=== PATIENT | male | born 1950 | race Caucasian/White ===

== ENCOUNTER 2018-08-17 13:53 | Inpatient (IN) | payer MEDICARE ==
[~2018-08-17] VITALS: Ht 175.3 cm; Wt 91.8 kg
--- NOTE | ~2018-08-17 | MORECARE ---
CASE MANAGEMENT DISCHARGE SUMMARY PATIENT: SANTIAGO GARCIA UNIT: [id number] ADM DATE: 08/17/18 AGE: 68 : 50 SEX: M ROOM/BED: D.2208 AUTHOR: CUONG CASH PHYSICIAN: REFERRING PHYSICIAN: SEFERINO DE SANTIAGO MD DATE OF SERVICE: 08/18/18 Discharge Plan Patient Name: SANTIAGO GARCIA Facility: [facility]:[place] : 1950 Planned Disposition: Home Anticipated Discharge Date: Discharge Date: Expected LOS: Initial Reviewer: [email or web address] Initial Review Date: 08/17/2018 Generated: 08/18/18 5:17 pm Comments DCP- Discharge Planning Updated by [email or web address]: Shari Sahu on 08/18/18 3:[address] Patient Name: SANTIAGO GARCIA Admission Status: ER Accout number: [id number] Admission Date: 08-17-2018 : 1950 Admission Diagnosis: Attending: SEFERINO DE SANTIAGO Current LOS: 1 Anticipated DC Date: Planned Disposition: Home Primary Insurance: [facility] ADMINISTRATION Discharge Planning Comments: CM met with patient to assess discharge planning needs. Currently he lives independently in [facility]. He stated that his PCP moved out of state. He stated that he was having surgery next week and an IVC filter placed tomorrow. He is open to Inpatient rehab, but unsure what he will need when he is discharged. He talked about going to [place] to where his sister lives. Patient has crutches and a knee brace at home. CM will continue to follow and assist with DC planning. Machinist Set Up: Shari Sahu DCP- Discharge Planning Updated by [id number]: Cecy Boateng on 08/17/18 5:[address] Patient requested to transfer to [facility] for his care. CM contacted Edrith, with [place], provided required information and Edrith states the patient is not registered with the [facility]. CM spoke with patient and he verbalizes the same. Information relayed to Dr. Pickett. Cecy Boateng RN, CM DCPIA - Discharge Planning Initial Assessment Updated by [email or web address]: Shari Sahu on 08/18/18 4:11 pm * Is the patient Alert and Oriented? Yes * How many steps to enter\exit or inside your home? * PCP none * Pharmacy none * Preadmission Environment Home Alone * ADLs Independent * Equipment Crutch * Other Equipment knee brace * List name and contact numbers for known caregivers / representatives who currently or will assist patient after discharge: Uyen () [phone] * Verbal permission to speak to the caregivers and representatives has been obtained from the patient. Yes * Community resources currently utilized None * Additional services required to return to the preadmission environment? Yes * Can the patient safely return to the preadmission environment? No * Has this patient been hospitalized within the prior 30 days at any hospital? No Patient Name: SANTIAGO GARCIA Page 50981 at 1617 All edits/amendments must be made on the electronic document DICTATION DATE: 08/18/181616 CASKET UPHOLSTERER: JULIO CESAR 08/18/181616 RPT#: [id number] [place] DATE: STATUS: ADM IN [facility] [address] [place] [address] END OF REPORT
--- NOTE | ~2018-08-17 | MORECARE ---
CASE MANAGEMENT DISCHARGE SUMMARY PATIENT: SANTIAGO GARCIA UNIT: [id number] ADM DATE: 08/18/18 AGE: 68 : 50 SEX: M ROOM/BED: D.2235 AUTHOR: CUONG CASH PHYSICIAN: REFERRING PHYSICIAN: SEFERINO DE SANTIAGO MD DATE OF SERVICE: 08/28/18 Discharge Plan Patient Name: SANTIAGO GARCIA Facility: [facility]:[place] : 1950 Planned Disposition: Home Anticipated Discharge Date: Discharge Date: 08/27/2018 Expected LOS: Initial Reviewer: [email or web address] Initial Review Date: 08/17/2018 Generated: 08/28/18 4:00 pm Comments DCP- Discharge Planning Updated by [email or web address]: Marilyn Davis on 08/27/18 2:[address] Received orders for discharge to inpatient rehab. Patient is in agreement. I explained IMM, copy given. He states he cannot sign. He said I could call his sister, Uyen, to inform of discharge to inpatient rehab today. I called Uyen and informed. Makayla in inpatient rehab informed. CM will continue to follow and assist with discharge planning/needs. DCP- Discharge Planning Updated by [email or web address]: Caroline Peter on 08/25/18 6:[address] CM received notification from Ashley with Rehab that patient needs to be able to take a few steps and be able to sit up for therapy for 3 hrs prior to admission to rehab. Physical Therapy to continue to work with patient . CM will continue to follow and assist as needed with discharge planning / needs. DCP- Discharge Planning Updated by [email or web address]: Shari Sahu on 08/18/18 3:[address] Patient Name: SANTIAGO GARCIA Admission Status: ER Accout number: [id number] Admission Date: 08-17-2018 : 1950 Admission Diagnosis: Attending: SEFERINO DE SANTIAGO Current LOS: 1 Anticipated DC Date: Planned Disposition: Home Primary Insurance: [employer] ADMINISTRATION Discharge Planning Comments: CM met with patient to assess discharge planning needs. Currently he lives independently in [facility]. He stated that his PCP moved out of state. He stated that he was having surgery next week and an IVC filter placed tomorrow. He is open to Inpatient rehab, but unsure what he will need when he is discharged. He talked about going to [place] to where his sister lives. Patient has crutches and a knee brace at home. CM will continue to follow and assist with DC planning. Electric Tripper Machine Operator: Sharijose alejandro Sahu DCP- Discharge Planning Updated by [id number]: Cecy Boateng on 08/17/18 5:[address] Patient requested to transfer to [facility] for his care. CM contacted Edrith, with [place], provided required information and Edri states the patient is not registered with the [facility]. CM spoke with patient and he verbalizes the same. Information relayed to Dr. Pickett. Cecy Boateng RN, CM DCPIA - Discharge Planning Initial Assessment Updated by [id number]: Shari Sahu on 08/18/18 4:11 pm * Is the patient Alert and Oriented? Yes * How many steps to enter\exit or inside your home? * PCP none * Pharmacy none * Preadmission Environment Home Alone * ADLs Independent * Equipment Crutch * Other Equipment knee brace * List name and contact numbers for known caregivers / representatives who currently or will assist patient after discharge: Uyen (sister) [phone] * Verbal permission to speak to the caregivers and representatives has been obtained from the patient. Yes * Community resources currently utilized None * Additional services required to return to the preadmission environment? Yes * Can the patient safely return to the preadmission environment? No * Has this patient been hospitalized within the prior 30 days at any hospital? No Coverage Notice Reviewer: [id number] Padmini Davis Notice Issued Date-Time: 08/27/2018 15:16 Notice Type: IM Discharge Notice Notice Delivered To: Family Member Relationship to Patient: Sister Chain Sales Representative Name: Uyen Rodas Delivery Method: HAND - Hand Delivered Estella Days: Prior Verbal Notification: Recipient Understood Notice: Yes Recipient Signature: Yes Med Rec Note Co-signed by Attending: Coverage Notice Comment: IMM explained, signed, copy given, original placed in MR Last DP export: 08/27/18 2:31 Patient Name: SANTIAGO GARCIA Page 27854 at 1500 All edits/amendments must be made on the electronic document DICTATION DATE: 08/28/181499 WELL SHOOTER: JULIO CESAR 08/28/181499 RPT#: [id number] DC DATE:08/27/18 STATUS: DIS IN [facility] [address] [place] [address] END OF REPORT
--- NOTE | ~2018-08-17 | MORECARE ---
CASE MANAGEMENT DISCHARGE SUMMARY PATIENT: SANTIAGO GARCIA UNIT: [id number] ADM DATE: 08/18/18 AGE: 68 : 50 SEX: M ROOM/BED: D[facility] AUTHOR: SHAILESH,DOC PHYSICIAN: REFERRING PHYSICIAN: SEFERINO DE SANTIAGO MD DATE OF SERVICE: 08/25/18 Discharge Plan Patient Name: SANTIAGO GARCIA Facility: [facility]:[place] : 1950 Planned Disposition: Home Anticipated Discharge Date: Discharge Date: Expected LOS: Initial Reviewer: [email or web address] Initial Review Date: 08/17/2018 Generated: 08/25/18 8:22 pm Comments DCP- Discharge Planning Updated by [email or web address]: Caroline Peter on 08/25/18 6:[address] CM received notification from Ashley with Rehab that patient needs to be able to take a few steps and be able to sit up for therapy for 3 hrs prior to admission to rehab. Physical Therapy to continue to work with patient . CM will continue to follow and assist as needed with discharge planning / needs. DCP- Discharge Planning Updated by [email or web address]: Shari Sahu on 08/18/18 3:[address] Patient Name: SANTIAGO GARCIA Admission Status: ER Accout number: [id number] Admission Date: 08-17-2018 : 1950 Admission Diagnosis: Attending: SEFERINO DE SANTIAGO Current LOS: 1 Anticipated DC Date: Planned Disposition: Home Primary Insurance: [facility] ADMINISTRATION Discharge Planning Comments: CM met with patient to assess discharge planning needs. Currently he lives independently in [facility]. He stated that his PCP moved out of state. He stated that he was having surgery next week and an IVC filter placed tomorrow. He is open to Inpatient rehab, but unsure what he will need when he is discharged. He talked about going to [place] to where his sister lives. Patient has crutches and a knee brace at home. CM will continue to follow and assist with DC planning. Brainer: Shari Sahu DCP- Discharge Planning Updated by [email or web address]: Cecy Boateng on 08/17/18 5:[address] Patient requested to transfer to [facility] for his care. CM contacted [place], with [place], provided required information and Edrith states the patient is not registered with the [facility]. CM spoke with patient and he verbalizes the same. Information relayed to Dr. Pickett. Cecy Boateng RN, CM DCPIA - Discharge Planning Initial Assessment Updated by [email or web address]: Shari Sahu on 08/18/18 4:11 pm * Is the patient Alert and Oriented? Yes * How many steps to enter\exit or inside your home? * PCP none * Pharmacy none * Preadmission Environment Home Alone * ADLs Independent * Equipment Crutch * Other Equipment knee brace * List name and contact numbers for known caregivers / representatives who currently or will assist patient after discharge: Uyen (sister) [phone] * Verbal permission to speak to the caregivers and representatives has been obtained from the patient. Yes * Community resources currently utilized None * Additional services required to return to the preadmission environment? Yes * Can the patient safely return to the preadmission environment? No * Has this patient been hospitalized within the prior 30 days at any hospital? No Last DP export: 08/18/18 3:17 Patient Name: SANTIAGO GARCIA Page 07713 at 1922 All edits/amendments must be made on the electronic document DICTATION DATE: 08/25/181921 MARKETING SALES REPRESENTATIVE: JULIO CESAR 08/25/181921 RPT#: [id number] DC DATE: STATUS: ADM IN [facility] [address] [place] [address] END OF REPORT
--- NOTE | ~2018-08-17 | MORECARE ---
CASE MANAGEMENT DISCHARGE SUMMARY PATIENT: SANTIAGO GARCIA UNIT: [id number] ADM DATE: 08/18/18 AGE: 68 : 50 SEX: M ROOM/BED: D.2235 AUTHOR: SHAILESH,DOC PHYSICIAN: REFERRING PHYSICIAN: SEFERINO DE SANTIAGO MD DATE OF SERVICE: 08/27/18 Discharge Plan Patient Name: SANTIAGO GARCIA Facility: [facility]:[place] : 1950 Planned Disposition: Home Anticipated Discharge Date: Discharge Date: Expected LOS: Initial Reviewer: [email or web address] Initial Review Date: 08/17/2018 Generated: 08/27/18 4:31 pm Comments DCP- Discharge Planning Updated by [email or web address]: Marilyn Davis on 08/27/18 2:[address] Received orders for discharge to inpatient rehab. Patient is in agreement. I explained IMM, copy given. He states he cannot sign. He said I could call his sister, Uyen, to inform of discharge to inpatient rehab today. I called Uyen and informed. Makayla in inpatient rehab informed. CM will continue to follow and assist with discharge planning/needs. DCP- Discharge Planning Updated by [id number]: Caroline Peter on 08/25/18 6:[address] CM received notification from Ashley with Rehab that patient needs to be able to take a few steps and be able to sit up for therapy for 3 hrs prior to admission to rehab. Physical Therapy to continue to work with patient . CM will continue to follow and assist as needed with discharge planning / needs. DCP- Discharge Planning Updated by [id number]: Shari Sahu on 08/18/18 3:[address] Patient Name: SANTIAGO GARCIA Admission Status: ER Accout number: [id number] Admission Date: 08-17-2018 : 1950 Admission Diagnosis: Attending: SEFERINO DE SANTIAGO Current LOS: 1 Anticipated DC Date: Planned Disposition: Home Primary Insurance: [employer] Discharge Planning Comments: CM met with patient to assess discharge planning needs. Currently he lives independently in [facility]. He stated that his PCP moved out of state. He stated that he was having surgery next week and an IVC filter placed tomorrow. He is open to Inpatient rehab, but unsure what he will need when he is discharged. He talked about going to [place] to where his sister lives. Patient has crutches and a knee brace at home. CM will continue to follow and assist with DC planning. Nursing Center Tutor: Shari Sahu DCP- Discharge Planning Updated by [email or web address]: Cecy Boateng on 08/17/18 5:[address] Patient requested to transfer to [facility] for his care. CM contacted Edrith, with [place], provided required information and Edri states the patient is not registered with the [facility]. CM spoke with patient and he verbalizes the same. Information relayed to Dr. Pickett. Cecy Boateng RN, CM DCPIA - Discharge Planning Initial Assessment Updated by [email or web address]: Shari Sahu on 08/18/18 4:11 pm * Is the patient Alert and Oriented? Yes * How many steps to enter\exit or inside your home? * PCP none * Pharmacy none * Preadmission Environment Home Alone * ADLs Independent * Equipment Crutch * Other Equipment knee brace * List name and contact numbers for known caregivers / representatives who currently or will assist patient after discharge: Uyen (sister) [phone] * Verbal permission to speak to the caregivers and representatives has been obtained from the patient. Yes * Community resources currently utilized None * Additional services required to return to the preadmission environment? Yes * Can the patient safely return to the preadmission environment? No * Has this patient been hospitalized within the prior 30 days at any hospital? No Coverage Notice Reviewer: [id number] Padmini Davis Notice Issued Date-Time: 08/27/2018 15:16 Notice Type: IM Discharge Notice Notice Delivered To: Family Member Relationship to Patient: Sister Computer Field Technician Name: Uyen Rodas Delivery Method: HAND - Hand Delivered Estella Days: Prior Verbal Notification: Recipient Understood Notice: Yes Recipient Signature: Yes Med Rec Note Co-signed by Attending: Coverage Notice Comment: IMM explained, signed, copy given, original placed in MR Last DP export: 08/25/18 6:22 Patient Name: SANTIAGO GARCIA Page 56591 at 1531 All edits/amendments must be made on the electronic document DICTATION DATE: 08/27/181529 RN DISCHARGE: JULIO CESAR 08/27/181529 RPT#: [id number] DC DATE: STATUS: ADM IN [facility] [address] [place] [address] END OF REPORT
[2018-08-17 20:33] VITALS: BP 115/54
[2018-08-18 02:35] VITALS: BP 124/64
[2018-08-18 03:07] VITALS: BP 115/54; Ht 175.3 cm; Wt 91.8 kg
[2018-08-18 05:01] VITALS: BP 134/64
[2018-08-18 09:22] LABS: BASOPHILS 0 % (0-2); EOSINOPHILS 0 % (0-7); HEMATOCRIT 39.6 % (42.0-54.0); HEMOGLOBIN 13.7 g/dL (13.5-17.5); IMMATURE GRANULOCYTES 0.3 % (0-5); LYMPHOCYTES 6.7 % (15-50); MCH 30.6 pg (26.0-34.0); MCHC 34.6 g/dL (31.0-37.0); MCV 88.6 fL (80.0-100.0); MEAN PLATELET VOLUME 9.4 fL (7.4-10.4); MONOCYTES 1.4 % (2-11); NEUTROPHILS 91.6 % (40-80); PLATELET COUNT 221 10x3/uL (130-400); RBC 4.47 10x6/uL (4.20-6.10); WBC 10.1 10x3/uL (4.8-10.8)
[2018-08-18 09:36] LABS: ANION GAP 12.6 mmol/L (8-16); CALCIUM 8.3 mg/dL (8.5-10.1); CARBON DIOXIDE 25.5 mmol/L (21.0-32.0); CREATININE - SERUM 1.3 mg/dL (0.6-1.3); POTASSIUM - SERUM 4.1 mmol/L (3.5-5.1)
[2018-08-18 09:59] VITALS: BP 105/44
[2018-08-18 21:33] VITALS: BP 100/64
[2018-08-19 01:38] VITALS: BP 124/60
[2018-08-19 04:45] VITALS: BP 121/59
[2018-08-19 05:00] LABS: BASOPHILS 0 % (0-2); EOSINOPHILS 0 % (0-7); HEMATOCRIT 40.7 % (42.0-54.0); IMMATURE GRANULOCYTES 0.1 % (0-5); LYMPHOCYTES 6.6 % (15-50); MCH 30.4 pg (26.0-34.0); MCHC 34.4 g/dL (31.0-37.0); MCV 88.3 fL (80.0-100.0); MEAN PLATELET VOLUME 10.3 fL (7.4-10.4); MONOCYTES 2.1 % (2-11); NEUTROPHILS 91.2 % (40-80); PLATELET COUNT 243 10x3/uL (130-400); RBC 4.61 10x6/uL (4.20-6.10)
[2018-08-19 05:06] LABS: WBC 13.7 10x3/uL (4.8-10.8)
[2018-08-19 05:12] LABS: CALC OSMOLALITY 286 mosm/kg (275-300); CALCIUM 8.3 mg/dL (8.5-10.1); CHLORIDE - SERUM 104 mmol/L (98-107); GLUCOSE 181 mg/dL (74-106); POTASSIUM - SERUM 3.9 mmol/L (3.5-5.1); SODIUM 139 mmol/L (136-145); eGFR NON AFRICAN AMERICAN 79 mL/min (90-120)
[2018-08-19 05:16] LABS: UREA NITROGEN 25 mg/dL (7-18)
[2018-08-19 08:36] VITALS: BP 133/55
[2018-08-19 10:48] LABS: APPEARANCE CLEAR (CLEAR); BILIRUBIN NEGATIVE (NEGATIVE); COLOR YELLOW (YELLOW); GLUCOSE NEGATIVE (NEGATIVE); KETONE NEGATIVE (NEGATIVE); NITRITE NEGATIVE (NEGATIVE); PROTEIN NEGATIVE (NEGATIVE); SPECIFIC GRAVITY 1.015 (1.005-1.020); UROBILINOGEN NORMAL (NORMAL)
[2018-08-19 10:49] LABS: BACTERIA FEW /hpf (NONE SEEN); WHITE CELLS - URINE 0-5 /hpf (0-5)
[2018-08-19 10:50] LABS: EPITHELIAL CELLS OCC /hpf (0-5)
[2018-08-19 12:24] VITALS: BP 124/67
[2018-08-19 18:20] VITALS: BP 119/56
[2018-08-19 20:12] VITALS: BP 123/58
[2018-08-20] VITALS (8 sets, daily range): BP systolic 112–133; BP diastolic 60–66
[2018-08-20 05:20] LABS: BASOPHILS 0 % (0-2); EOSINOPHILS 0 % (0-7); HEMATOCRIT 41.2 % (42.0-54.0); HEMOGLOBIN 14.6 g/dL (13.5-17.5); IMMATURE GRANULOCYTES 0.3 % (0-5); LYMPHOCYTES 6.9 % (15-50); MCH 30.9 pg (26.0-34.0); MCHC 35.4 g/dL (31.0-37.0); MCV 87.1 fL (80.0-100.0); MEAN PLATELET VOLUME 10.2 fL (7.4-10.4); MONOCYTES 3.2 % (2-11); NEUTROPHILS 89.6 % (40-80); PLATELET COUNT 238 10x3/uL (130-400); RBC 4.73 10x6/uL (4.20-6.10); RDW 12.7 % (11.5-14.5); WBC 12.1 10x3/uL (4.8-10.8)
[2018-08-20 05:33] LABS: ANION GAP 10.8 mmol/L (8-16); CALCIUM 8.1 mg/dL (8.5-10.1); CREATININE - SERUM 1.1 mg/dL (0.6-1.3); POTASSIUM - SERUM 3.8 mmol/L (3.5-5.1)
[2018-08-21] VITALS (19 sets, daily range): BP systolic 98–125; BP diastolic 46–78
[2018-08-21 04:13] LABS: BASOPHILS 0 % (0-2); EOSINOPHILS 0 % (0-7); HEMATOCRIT 41.5 % (42.0-54.0); HEMOGLOBIN 15.2 g/dL (13.5-17.5); IMMATURE GRANULOCYTES 0.6 % (0-5); LYMPHOCYTES 7.8 % (15-50); MCH 31.2 pg (26.0-34.0); MCHC 36.6 g/dL (31.0-37.0); MCV 85.2 fL (80.0-100.0); MEAN PLATELET VOLUME 10.3 fL (7.4-10.4); MONOCYTES 5.2 % (2-11); NEUTROPHILS 86.4 % (40-80); PLATELET COUNT 219 10x3/uL (130-400); RBC 4.87 10x6/uL (4.20-6.10); RDW 12.5 % (11.5-14.5); WBC 10.3 10x3/uL (4.8-10.8)
[2018-08-21 04:21] LABS: ANION GAP 11.6 mmol/L (8-16); CALCIUM 8.4 mg/dL (8.5-10.1); CARBON DIOXIDE 29.3 mmol/L (21.0-32.0); CREATININE - SERUM 1.2 mg/dL (0.6-1.3); POTASSIUM - SERUM 3.9 mmol/L (3.5-5.1)
[2018-08-22] VITALS (24 sets, daily range): BP systolic 101–129; BP diastolic 51–83
[2018-08-22 05:44] LABS: BASOPHILS 0.1 % (0-2); EOSINOPHILS 0 % (0-7); HEMATOCRIT 41.8 % (42.0-54.0); HEMOGLOBIN 15.2 g/dL (13.5-17.5); IMMATURE GRANULOCYTES 0.6 % (0-5); LYMPHOCYTES 6.8 % (15-50); MCH 30.8 pg (26.0-34.0); MCHC 36.4 g/dL (31.0-37.0); MCV 84.6 fL (80.0-100.0); MEAN PLATELET VOLUME 10.2 fL (7.4-10.4); MONOCYTES 6.3 % (2-11); NEUTROPHILS 86.2 % (40-80); PLATELET COUNT 220 10x3/uL (130-400); RBC 4.94 10x6/uL (4.20-6.10); RDW 12.3 % (11.5-14.5); WBC 11.8 10x3/uL (4.8-10.8)
[2018-08-22 06:13] LABS: ANION GAP 11.2 mmol/L (8-16); CALCIUM 7.9 mg/dL (8.5-10.1); CARBON DIOXIDE 29.2 mmol/L (21.0-32.0); CREATININE - SERUM 1.1 mg/dL (0.6-1.3); POTASSIUM - SERUM 4.4 mmol/L (3.5-5.1)
[2018-08-23] VITALS (22 sets, daily range): BP systolic 86–129; BP diastolic 40–61
[2018-08-24] VITALS (24 sets, daily range): BP systolic 91–127; BP diastolic 42–71
[2018-08-25] VITALS (24 sets, daily range): BP systolic 109–138; BP diastolic 50–68
[2018-08-26] VITALS (13 sets, daily range): BP systolic 103–137; BP diastolic 45–71
[2018-08-27 01:05] VITALS: BP 123/69
[2018-08-27 05:11] LABS: HEMATOCRIT 40.1 % (42.0-54.0); HEMOGLOBIN 14.5 g/dL (13.5-17.5); MCH 30.5 pg (26.0-34.0); MCHC 36.2 g/dL (31.0-37.0); MCV 84.2 fL (80.0-100.0); MEAN PLATELET VOLUME 10.1 fL (7.4-10.4); PLATELET COUNT 217 10x3/uL (130-400); RBC 4.76 10x6/uL (4.20-6.10); RDW 12.4 % (11.5-14.5)
[2018-08-27 05:38] LABS: ALBUMIN 2.8 g/dL (3.4-5.0); ALKALINE PHOSPHATASE 48 U/L (46-116); ALT (SGPT) 81 U/L (10-68); BILIRUBIN - TOTAL 0.69 mg/dL (0.2-1.3); CALC OSMOLALITY 279 mosm/kg (275-300); CALCIUM 7.8 mg/dL (8.5-10.1); CARBON DIOXIDE 27.6 mmol/L (21.0-32.0); CHLORIDE - SERUM 101 mmol/L (98-107); CREATININE - SERUM 0.9 mg/dL (0.6-1.3); POTASSIUM - SERUM 3.8 mmol/L (3.5-5.1); PROTEIN - SERUM 5.7 g/dL (6.4-8.2); SODIUM 135 mmol/L (136-145); UREA NITROGEN 33 mg/dL (7-18); eGFR NON AFRICAN AMERICAN 89 mL/min (90-120)
[2018-08-27 05:45] LABS: GLUCOSE 152 mg/dL (74-106)
[2018-08-27 06:35] VITALS: BP 131/77
[2018-08-27 06:37] LABS: LYMPHOCYTES 13 % (15-50); MONOCYTES 4 % (2-11); NEUTROPHILS 77 % (40-80)
[2018-08-27 06:38] LABS: PLATELET ESTIMATE NORMAL
[2018-08-27 08:15] VITALS: BP 126/69
[2018-08-27] MEDS ORDERED: NORCO-7.5 PO (14:35)
[2018-08-27] MEDS ORDERED: ACETAMINOPHEN500 M1 PO (14:35)
[2018-08-27] MEDS ORDERED: LOVENOX40 MG/0.4 SC (14:35)
[2018-08-27] MEDS ORDERED: HYDROCODON-ACE1 EAC7 PO (14:35)
[2018-08-27] MEDS ORDERED: ROBAXIN PO (14:35)
[2018-08-27] MEDS ORDERED: ONDANSETRON4 MG/2 M3 IV (14:36)
[2018-08-27] MEDS ORDERED: MIRALAX17 GM PO (14:36)
[2018-08-27] MEDS ORDERED: Senokot-S Tablet PO (14:36)
[2018-08-27] MEDS ORDERED: DULCOLAX10 MG/SUPP RC ×2 (14:36)
[2018-08-27] MEDS ORDERED: PROTONIX VL + NS SYR IV (14:36)
[2018-08-27] MEDS ORDERED: LASIX INJ40 MG/4 ML IV (14:36)
[2018-08-27 16:02] VITALS: BP 129/59
== END 2018-08-27 18:12 | DRG 471 ==
LOC: D.ER 13:53 → D.MS 17:36 → OBSVTIME 17:37 → D.MS 08-18 17:04 → D.CVICU 08-18 17:04 → D.MS 08-26 11:20
PROVIDERS: Family Medicine; Internal Medicine Nephrology; Neurological Surgery
PROC: 0RB30ZZ Excision of Cervical Vertebral Disc, Open Approach (ICD-10-PCS; principal; 2018-08-21 07:30)
PROC: 0RG10A0 Fusion of Cervical Vertebral Joint with Interbody Fusion Device, Anterior Approach, Anterior Column, Open Approach (ICD-10-PCS; 2018-08-21 07:30)
DX: M48.02 Spinal stenosis, cervical region (principal); R53.2 Functional quadriplegia; M50.021 Cervical disc disorder at C4-C5 level with myelopathy; G72.89 Other specified myopathies; R20.2 Paresthesia of skin; R33.9 Retention of urine, unspecified; E07.9 Disorder of thyroid, unspecified; R53.1 Weakness; W19.XXXA Unspecified fall, initial encounter

== ENCOUNTER 2018-08-27 16:54 | Inpatient (IN) | payer MEDICARE ==
[~2018-08-27] VITALS: Ht 175.3 cm; Wt 94.8 kg
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
[~2018-08-27 16:54] MED LIST: ACETAMINOPHEN500 M1 PO; DULCOLAX10 MG/SUPP RC; HYDROCODON-ACE1 EAC7 PO; LASIX INJ40 MG/4 ML IV; LOVENOX40 MG/0.4 SC; MIRALAX17 GM PO; NORCO-7.5 PO; ONDANSETRON4 MG/2 M3 IV; PROTONIX VL + NS SYR IV; ROBAXIN PO; Senokot-S Tablet PO
[2018-08-27 18:45] VITALS: BP 123/65; BMI 30.9
[2018-08-27 19:15] VITALS: BP 123/65
[2018-08-28 06:16] LABS: BASOPHILS 0.1 % (0-2); EOSINOPHILS 0.4 % (0-7); HEMATOCRIT 39.4 % (42.0-54.0); HEMOGLOBIN 14.4 g/dL (13.5-17.5); IMMATURE GRANULOCYTES 4.9 % (0-5); LYMPHOCYTES 7.6 % (15-50); MCH 30.8 pg (26.0-34.0); MCHC 36.5 g/dL (31.0-37.0); MCV 84.4 fL (80.0-100.0); MEAN PLATELET VOLUME 9.8 fL (7.4-10.4); MONOCYTES 5.8 % (2-11); NEUTROPHILS 81.2 % (40-80); PLATELET COUNT 232 10x3/uL (130-400); RBC 4.67 10x6/uL (4.20-6.10); RDW 12.7 % (11.5-14.5); WBC 23.3 10x3/uL (4.8-10.8)
[2018-08-28 06:19] LABS: CALC OSMOLALITY 278 mosm/kg (275-300); CARBON DIOXIDE 29.5 mmol/L (21.0-32.0); CHLORIDE - SERUM 101 mmol/L (98-107); CREATININE - SERUM 0.8 mg/dL (0.6-1.3); GLUCOSE 105 mg/dL (74-106); POTASSIUM - SERUM 3.9 mmol/L (3.5-5.1); SODIUM 136 mmol/L (136-145); UREA NITROGEN 31 mg/dL (7-18); eGFR NON AFRICAN AMERICAN > 90 mL/min (90-120)
[2018-08-28 08:00] VITALS: BP 118/68
[2018-08-28 12:44] VITALS: Ht 175.3 cm; Wt 94.8 kg
[2018-08-28 19:40] VITALS: BP 133/52
[2018-08-29 07:45] VITALS: BP 114/65
[2018-08-29 22:41] VITALS: BP 128/78
[2018-08-30 16:37] VITALS: BP 129/59
[2018-08-30 16:43] VITALS: BP 133/78
[2018-08-30 19:40] VITALS: BP 134/60
[2018-08-31 06:40] LABS: BASOPHILS 0.1 % (0-2); HEMATOCRIT 39.1 % (42.0-54.0); HEMOGLOBIN 13.5 g/dL (13.5-17.5); IMMATURE GRANULOCYTES 3.7 % (0-5); LYMPHOCYTES 13.9 % (15-50); MCH 30.5 pg (26.0-34.0); MCHC 34.5 g/dL (31.0-37.0); MCV 88.5 fL (80.0-100.0); MEAN PLATELET VOLUME 9.1 fL (7.4-10.4); MONOCYTES 7.5 % (2-11); NEUTROPHILS 72.8 % (40-80); PLATELET COUNT 227 10x3/uL (130-400); RBC 4.42 10x6/uL (4.20-6.10); RDW 13.3 % (11.5-14.5); WBC 13.8 10x3/uL (4.8-10.8)
[2018-08-31 06:56] LABS: CALC OSMOLALITY 281 mosm/kg (275-300); CARBON DIOXIDE 29.7 mmol/L (21.0-32.0); CHLORIDE - SERUM 103 mmol/L (98-107); CREATININE - SERUM 0.7 mg/dL (0.6-1.3); GLUCOSE 104 mg/dL (74-106); POTASSIUM - SERUM 4.2 mmol/L (3.5-5.1); SODIUM 140 mmol/L (136-145); UREA NITROGEN 20 mg/dL (7-18); eGFR NON AFRICAN AMERICAN > 90 mL/min (90-120)
[2018-08-31 16:36] VITALS: BP 123/59
[2018-08-31 20:42] VITALS: BP 116/61
[2018-09-01 08:15] VITALS: BP 114/61
[2018-09-01 21:55] VITALS: BP 105/56
[2018-09-02 06:08] LABS: BASOPHILS 0.1 % (0-2); EOSINOPHILS 2.5 % (0-7); HEMATOCRIT 39.1 % (42.0-54.0); HEMOGLOBIN 13.3 g/dL (13.5-17.5); IMMATURE GRANULOCYTES 2.1 % (0-5); MCH 30.4 pg (26.0-34.0); MCV 89.3 fL (80.0-100.0); MONOCYTES 7.5 % (2-11); NEUTROPHILS 70.8 % (40-80); PLATELET COUNT 224 10x3/uL (130-400); RBC 4.38 10x6/uL (4.20-6.10); RDW 13.3 % (11.5-14.5)
[2018-09-02 06:19] LABS: WBC 10.3 10x3/uL (4.8-10.8)
[2018-09-02 06:35] LABS: CALC OSMOLALITY 285 mosm/kg (275-300); CALCIUM 8.2 mg/dL (8.5-10.1); CHLORIDE - SERUM 105 mmol/L (98-107); CREATININE - SERUM 0.8 mg/dL (0.6-1.3); GLUCOSE 114 mg/dL (74-106); POTASSIUM - SERUM 3.6 mmol/L (3.5-5.1); SODIUM 142 mmol/L (136-145); UREA NITROGEN 19 mg/dL (7-18); eGFR NON AFRICAN AMERICAN > 90 mL/min (90-120)
[2018-09-02 08:00] VITALS: BP 117/61
[2018-09-02 19:00] VITALS: BP 130/64
[2018-09-03 07:59] VITALS: BP 102/54
[2018-09-03 19:00] VITALS: BP 111/51
[2018-09-04 06:08] LABS: BASOPHILS 0.3 % (0-2); EOSINOPHILS 2.9 % (0-7); HEMATOCRIT 38.7 % (42.0-54.0); IMMATURE GRANULOCYTES 1.4 % (0-5); LYMPHOCYTES 17.1 % (15-50); MCH 30.1 pg (26.0-34.0); MCHC 33.6 g/dL (31.0-37.0); MCV 89.6 fL (80.0-100.0); MEAN PLATELET VOLUME 8.8 fL (7.4-10.4); MONOCYTES 7.8 % (2-11); NEUTROPHILS 70.5 % (40-80); PLATELET COUNT 207 10x3/uL (130-400); RBC 4.32 10x6/uL (4.20-6.10); RDW 13.5 % (11.5-14.5)
[2018-09-04 07:01] LABS: CALC OSMOLALITY 284 mosm/kg (275-300); CALCIUM 8.4 mg/dL (8.5-10.1); CARBON DIOXIDE 30.7 mmol/L (21.0-32.0); CHLORIDE - SERUM 105 mmol/L (98-107); CREATININE - SERUM 0.8 mg/dL (0.6-1.3); GLUCOSE 104 mg/dL (74-106); POTASSIUM - SERUM 3.6 mmol/L (3.5-5.1); SODIUM 142 mmol/L (136-145); UREA NITROGEN 18 mg/dL (7-18); eGFR NON AFRICAN AMERICAN > 90 mL/min (90-120)
[2018-09-04 08:00] VITALS: BP 123/53
[2018-09-04 19:44] VITALS: BP 126/67
[2018-09-05 08:00] VITALS: BP 111/59
[2018-09-05 22:10] VITALS: BP 126/52
[2018-09-06 10:36] VITALS: BP 107/57
[2018-09-06 22:21] VITALS: BP 101/55
[2018-09-07 06:18] LABS: BASOPHILS 0.5 % (0-2); EOSINOPHILS 6.5 % (0-7); HEMATOCRIT 39.3 % (42.0-54.0); HEMOGLOBIN 13.5 g/dL (13.5-17.5); IMMATURE GRANULOCYTES 0.5 % (0-5); LYMPHOCYTES 16.9 % (15-50); MCH 30.8 pg (26.0-34.0); MCHC 34.4 g/dL (31.0-37.0); MCV 89.7 fL (80.0-100.0); MEAN PLATELET VOLUME 8.9 fL (7.4-10.4); MONOCYTES 5.1 % (2-11); NEUTROPHILS 70.5 % (40-80); PLATELET COUNT 184 10x3/uL (130-400); RBC 4.38 10x6/uL (4.20-6.10); RDW 13.4 % (11.5-14.5); WBC 8.6 10x3/uL (4.8-10.8)
[2018-09-07 06:32] LABS: CALC OSMOLALITY 281 mosm/kg (275-300); CALCIUM 8.5 mg/dL (8.5-10.1); CARBON DIOXIDE 29.2 mmol/L (21.0-32.0); CHLORIDE - SERUM 104 mmol/L (98-107); CREATININE - SERUM 0.7 mg/dL (0.6-1.3); GLUCOSE 104 mg/dL (74-106); POTASSIUM - SERUM 3.4 mmol/L (3.5-5.1); SODIUM 141 mmol/L (136-145); UREA NITROGEN 14 mg/dL (7-18); eGFR NON AFRICAN AMERICAN > 90 mL/min (90-120)
[2018-09-07 08:25] VITALS: BP 113/58
[2018-09-07 19:48] VITALS: BP 113/61
[2018-09-08 08:00] VITALS: BP 106/55
[2018-09-08 20:45] VITALS: BP 116/59
[2018-09-09 06:16] LABS: BASOPHILS 0.6 % (0-2); EOSINOPHILS 6.7 % (0-7); HEMOGLOBIN 12.8 g/dL (13.5-17.5); IMMATURE GRANULOCYTES 0.6 % (0-5); LYMPHOCYTES 22.1 % (15-50); MCH 30.2 pg (26.0-34.0); MCHC 33.7 g/dL (31.0-37.0); MCV 89.6 fL (80.0-100.0); MEAN PLATELET VOLUME 9.1 fL (7.4-10.4); MONOCYTES 6.8 % (2-11); NEUTROPHILS 63.2 % (40-80); PLATELET COUNT 182 10x3/uL (130-400); RBC 4.24 10x6/uL (4.20-6.10); RDW 13.4 % (11.5-14.5); WBC 6.9 10x3/uL (4.8-10.8)
[2018-09-09 06:22] LABS: CALC OSMOLALITY 285 mosm/kg (275-300); CALCIUM 8.3 mg/dL (8.5-10.1); CARBON DIOXIDE 29.3 mmol/L (21.0-32.0); CHLORIDE - SERUM 106 mmol/L (98-107); CREATININE - SERUM 0.7 mg/dL (0.6-1.3); GLUCOSE 105 mg/dL (74-106); POTASSIUM - SERUM 3.5 mmol/L (3.5-5.1); SODIUM 143 mmol/L (136-145); UREA NITROGEN 15 mg/dL (7-18); eGFR NON AFRICAN AMERICAN > 90 mL/min (90-120)
[2018-09-09 08:00] VITALS: BP 125/57
[2018-09-09 19:00] VITALS: BP 121/73
[2018-09-10 08:00] VITALS: BP 114/65
[2018-09-11 02:29] VITALS: BP 124/63
[2018-09-11 06:58] LABS: BASOPHILS 0.4 % (0-2); EOSINOPHILS 5.6 % (0-7); HEMATOCRIT 37.3 % (42.0-54.0); HEMOGLOBIN 12.6 g/dL (13.5-17.5); IMMATURE GRANULOCYTES 0.9 % (0-5); LYMPHOCYTES 25.1 % (15-50); MCH 29.9 pg (26.0-34.0); MCHC 33.8 g/dL (31.0-37.0); MCV 88.6 fL (80.0-100.0); MEAN PLATELET VOLUME 9.2 fL (7.4-10.4); MONOCYTES 8.2 % (2-11); NEUTROPHILS 59.8 % (40-80); PLATELET COUNT 205 10x3/uL (130-400); RBC 4.21 10x6/uL (4.20-6.10); RDW 13.2 % (11.5-14.5); WBC 6.7 10x3/uL (4.8-10.8)
[2018-09-11 08:00] VITALS: BP 105/62
[2018-09-11 08:30] LABS: CALC OSMOLALITY 283 mosm/kg (275-300); CALCIUM 8.6 mg/dL (8.5-10.1); CARBON DIOXIDE 29.5 mmol/L (21.0-32.0); CHLORIDE - SERUM 102 mmol/L (98-107); CREATININE - SERUM 0.8 mg/dL (0.6-1.3); GLUCOSE 94 mg/dL (74-106); POTASSIUM - SERUM 3.3 mmol/L (3.5-5.1); SODIUM 142 mmol/L (136-145); UREA NITROGEN 16 mg/dL (7-18); eGFR NON AFRICAN AMERICAN > 90 mL/min (90-120)
[2018-09-11 19:00] VITALS: BP 116/65
[2018-09-12 08:00] VITALS: BP 102/61
[2018-09-12 19:00] VITALS: BP 137/62
[2018-09-13 12:17] VITALS: BP 115/69
[2018-09-13 19:00] VITALS: BP 116/55
[2018-09-14 07:09] LABS: BASOPHILS 0.4 % (0-2); EOSINOPHILS 5.8 % (0-7); HEMATOCRIT 38.5 % (42.0-54.0); HEMOGLOBIN 13.1 g/dL (13.5-17.5); IMMATURE GRANULOCYTES 2.2 % (0-5); LYMPHOCYTES 21.9 % (15-50); MCH 30.3 pg (26.0-34.0); MCV 88.9 fL (80.0-100.0); MEAN PLATELET VOLUME 8.9 fL (7.4-10.4); MONOCYTES 9.6 % (2-11); NEUTROPHILS 60.1 % (40-80); PLATELET COUNT 252 10x3/uL (130-400); RBC 4.33 10x6/uL (4.20-6.10); RDW 13.1 % (11.5-14.5); WBC 6.8 10x3/uL (4.8-10.8)
[2018-09-14 07:23] LABS: CALC OSMOLALITY 277 mosm/kg (275-300); CALCIUM 8.8 mg/dL (8.5-10.1); CARBON DIOXIDE 29.7 mmol/L (21.0-32.0); CHLORIDE - SERUM 102 mmol/L (98-107); CREATININE - SERUM 0.8 mg/dL (0.6-1.3); GLUCOSE 97 mg/dL (74-106); POTASSIUM - SERUM 3.4 mmol/L (3.5-5.1); SODIUM 140 mmol/L (136-145); UREA NITROGEN 11 mg/dL (7-18); eGFR NON AFRICAN AMERICAN > 90 mL/min (90-120)
[2018-09-14 08:13] VITALS: BP 116/63
[2018-09-14 19:00] VITALS: BP 121/67
[2018-09-15 08:35] VITALS: BP 109/68
[2018-09-15 19:00] VITALS: BP 98/58
[2018-09-16 07:11] LABS: BASOPHILS 0.4 % (0-2); EOSINOPHILS 4.6 % (0-7); HEMATOCRIT 38.1 % (42.0-54.0); IMMATURE GRANULOCYTES 4.5 % (0-5); LYMPHOCYTES 20.1 % (15-50); MCH 30.3 pg (26.0-34.0); MCHC 34.1 g/dL (31.0-37.0); MCV 88.8 fL (80.0-100.0); MEAN PLATELET VOLUME 9.2 fL (7.4-10.4); MONOCYTES 10.1 % (2-11); NEUTROPHILS 60.3 % (40-80); PLATELET COUNT 282 10x3/uL (130-400); RBC 4.29 10x6/uL (4.20-6.10); RDW 13.1 % (11.5-14.5); WBC 7.4 10x3/uL (4.8-10.8)
[2018-09-16 07:25] LABS: CALC OSMOLALITY 281 mosm/kg (275-300); CALCIUM 9.2 mg/dL (8.5-10.1); CARBON DIOXIDE 30.6 mmol/L (21.0-32.0); CHLORIDE - SERUM 104 mmol/L (98-107); CREATININE - SERUM 0.8 mg/dL (0.6-1.3); GLUCOSE 102 mg/dL (74-106); POTASSIUM - SERUM 3.6 mmol/L (3.5-5.1); SODIUM 141 mmol/L (136-145); eGFR NON AFRICAN AMERICAN > 90 mL/min (90-120)
[2018-09-16 07:27] LABS: UREA NITROGEN 15 mg/dL (7-18)
[2018-09-16 08:00] VITALS: BP 109/64
[2018-09-16 19:00] VITALS: BP 104/59
[2018-09-17 08:00] VITALS: BP 115/62
[2018-09-17 19:00] VITALS: BP 130/60
[2018-09-18 07:10] LABS: BASOPHILS 0.3 % (0-2); EOSINOPHILS 2.8 % (0-7); HEMATOCRIT 38.6 % (42.0-54.0); IMMATURE GRANULOCYTES 4.6 % (0-5); LYMPHOCYTES 23.7 % (15-50); MCHC 33.7 g/dL (31.0-37.0); MCV 89.1 fL (80.0-100.0); MEAN PLATELET VOLUME 8.9 fL (7.4-10.4); MONOCYTES 9.6 % (2-11); PLATELET COUNT 297 10x3/uL (130-400); RBC 4.33 10x6/uL (4.20-6.10); RDW 13.1 % (11.5-14.5); WBC 7.5 10x3/uL (4.8-10.8)
[2018-09-18 07:22] LABS: CALC OSMOLALITY 285 mosm/kg (275-300); CARBON DIOXIDE 31.2 mmol/L (21.0-32.0); CHLORIDE - SERUM 105 mmol/L (98-107); CREATININE - SERUM 0.9 mg/dL (0.6-1.3); GLUCOSE 95 mg/dL (74-106); POTASSIUM - SERUM 3.7 mmol/L (3.5-5.1); SODIUM 143 mmol/L (136-145); UREA NITROGEN 14 mg/dL (7-18); eGFR NON AFRICAN AMERICAN 89 mL/min (90-120)
[2018-09-18 08:00] VITALS: BP 112/62
[2018-09-18 19:00] VITALS: BP 121/58
[2018-09-19 20:16] VITALS: BP 109/60
[2018-09-20 13:48] VITALS: BP 107/52
[2018-09-20 23:37] VITALS: BP 98/54
[2018-09-21 06:54] LABS: BASOPHILS 0.4 % (0-2); EOSINOPHILS 1.5 % (0-7); HEMATOCRIT 39.5 % (42.0-54.0); HEMOGLOBIN 13.2 g/dL (13.5-17.5); IMMATURE GRANULOCYTES 5.5 % (0-5); LYMPHOCYTES 16.1 % (15-50); MCH 29.9 pg (26.0-34.0); MCHC 33.4 g/dL (31.0-37.0); MCV 89.4 fL (80.0-100.0); NEUTROPHILS 67.5 % (40-80); PLATELET COUNT 337 10x3/uL (130-400); RBC 4.42 10x6/uL (4.20-6.10); RDW 12.9 % (11.5-14.5); WBC 10.4 10x3/uL (4.8-10.8)
[2018-09-21 07:00] LABS: CALC OSMOLALITY 282 mosm/kg (275-300); CALCIUM 8.8 mg/dL (8.5-10.1); CARBON DIOXIDE 32.3 mmol/L (21.0-32.0); CHLORIDE - SERUM 104 mmol/L (98-107); CREATININE - SERUM 0.7 mg/dL (0.6-1.3); GLUCOSE 104 mg/dL (74-106); POTASSIUM - SERUM 3.7 mmol/L (3.5-5.1); SODIUM 142 mmol/L (136-145); UREA NITROGEN 12 mg/dL (7-18); eGFR NON AFRICAN AMERICAN > 90 mL/min (90-120)
[2018-09-21 07:28] VITALS: BP 111/64
[2018-09-21 19:02] VITALS: BP 124/64
[2018-09-22 07:55] VITALS: BP 109/56
[2018-09-22 19:45] VITALS: BP 120/64
[2018-09-23 06:10] LABS: BASOPHILS 0.4 % (0-2); EOSINOPHILS 1.5 % (0-7); HEMATOCRIT 38.9 % (42.0-54.0); IMMATURE GRANULOCYTES 5.5 % (0-5); LYMPHOCYTES 18.5 % (15-50); MCH 29.9 pg (26.0-34.0); MCHC 33.4 g/dL (31.0-37.0); MCV 89.4 fL (80.0-100.0); MEAN PLATELET VOLUME 9.2 fL (7.4-10.4); NEUTROPHILS 66.1 % (40-80); PLATELET COUNT 314 10x3/uL (130-400); RBC 4.35 10x6/uL (4.20-6.10); WBC 10.5 10x3/uL (4.8-10.8)
[2018-09-23 06:38] LABS: CALC OSMOLALITY 284 mosm/kg (275-300); CARBON DIOXIDE 30.9 mmol/L (21.0-32.0); CHLORIDE - SERUM 104 mmol/L (98-107); GLUCOSE 99 mg/dL (74-106); POTASSIUM - SERUM 3.6 mmol/L (3.5-5.1); SODIUM 143 mmol/L (136-145); UREA NITROGEN 12 mg/dL (7-18); eGFR NON AFRICAN AMERICAN 89 mL/min (90-120)
[2018-09-23 06:45] LABS: CREATININE - SERUM 0.9 mg/dL (0.6-1.3)
[2018-09-23 08:00] VITALS: BP 133/71
[2018-09-23 20:00] VITALS: BP 121/64
[2018-09-24 08:00] VITALS: BP 134/68
[2018-09-24 19:00] VITALS: BP 123/68
[2018-09-25] MEDS ORDERED: LASIX40 MG PO (07:57)
[2018-09-25] MEDS ORDERED: K-DUR20 MEQ PO (07:57)
[2018-09-25] MEDS ORDERED: ZANAFLEX4 MG PO (07:57)
[2018-09-25] MEDS ORDERED: PROTONIX40 MG PO (07:58)
[2018-09-25] MEDS ORDERED: CALMOSEPTINE OI71 GM TOPICAL (07:59)
[2018-09-25 08:00] VITALS: BP 115/59
[2018-09-25 08:34] LABS: BASOPHILS 0.3 % (0-2); EOSINOPHILS 1.4 % (0-7); HEMATOCRIT 40.8 % (42.0-54.0); IMMATURE GRANULOCYTES 3.4 % (0-5); LYMPHOCYTES 15.8 % (15-50); MCH 30.4 pg (26.0-34.0); MCHC 34.3 g/dL (31.0-37.0); MCV 88.7 fL (80.0-100.0); MEAN PLATELET VOLUME 9.4 fL (7.4-10.4); MONOCYTES 7.9 % (2-11); NEUTROPHILS 71.2 % (40-80); PLATELET COUNT 304 10x3/uL (130-400); RDW 13.1 % (11.5-14.5); WBC 9.9 10x3/uL (4.8-10.8)
[2018-09-25 08:43] LABS: CALC OSMOLALITY 283 mosm/kg (275-300); CALCIUM 9.4 mg/dL (8.5-10.1); CARBON DIOXIDE 32.4 mmol/L (21.0-32.0); CHLORIDE - SERUM 102 mmol/L (98-107); CREATININE - SERUM 0.9 mg/dL (0.6-1.3); GLUCOSE 100 mg/dL (74-106); POTASSIUM - SERUM 3.8 mmol/L (3.5-5.1); SODIUM 142 mmol/L (136-145); UREA NITROGEN 14 mg/dL (7-18); eGFR NON AFRICAN AMERICAN 89 mL/min (90-120)
== END 2018-09-25 10:49 | DRG 552 ==
LOC: D.REHAB 16:54
PROVIDERS: Emergency Medicine
DX: M48.02 Spinal stenosis, cervical region (principal); R20.2 Paresthesia of skin; R53.1 Weakness; F17.200 Nicotine dependence, unspecified, uncomplicated; W19.XXXD Unspecified fall, subsequent encounter; R53.81 Other malaise; E07.9 Disorder of thyroid, unspecified; M50.221 Other cervical disc displacement at C4-C5 level

== ENCOUNTER 2018-10-28 14:51 | Inpatient (IN) | payer MEDICARE ==
[~2018-10-28] VITALS: Ht 175.3 cm; Wt 112.0 kg
[~2018-10-28 14:51] MED LIST changes: +CALMOSEPTINE OI71 GM TOPICAL; +K-DUR20 MEQ PO; +LASIX40 MG PO; +PROTONIX40 MG PO; +ZANAFLEX4 MG PO
[2018-10-29] VITALS (10 sets, daily range): BP systolic 85–124; BP diastolic 38–69; BMI 32.8
--- NOTE | 2018-10-29 13:30 | NUR ---
ARRIVED TO UNIT VIA PERSONAL WHEELCHAIR WITH ADMISSION STAFF. TRANSFERRED TO BED WITH HELP FROM PHYSICAL THERAPY. CONNECTED TO DEFENCE FORCE SENIOR OFFICER. VSS. NO FEVER NOTED. LUNGS CLEAR. BS ACTIVE X 4. HAS CHRONIC BARTON. PT STATES THAT IT WAS REPLACED ON 10/19/18. CONCENTRATED YELLOW URINE NOTED. NO SKIN ISSUES NOTED AT THIS TIME. WEARS GLASSES. 20G PIV INSERTED ON L-HAND. S.L AT THIS TIME. PT ASKING FOR WATER. WILL REVIEW ORDERS.
--- NOTE | 2018-10-29 14:45 | NUR ---
CALLED DR. OJEDA TO NOTIFY OF PATIENT ARRIVAL. ORDERED REGULAR DIET AT THIS TIME. NPO AFTER MIDNIGHT.
--- NOTE | 2018-10-29 15:46 | NUR ---
DR. DE SANTIAGO NOTIFIED OF PATIENT ARRIVAL TO UNIT.
--- NOTE | 2018-10-29 17:10 | NUR ---
REGULAR MEAL TRAY DELIVERED AND SET UP. PT RESTING COMFORTABLY. SISTER AT BEDSIDE.
[2018-10-30] VITALS (23 sets, daily range): BP systolic 92–121; BP diastolic 45–83
[2018-10-30 13:54] LABS: HEMATOCRIT 40.4 % (42.0-54.0); HEMOGLOBIN 13.8 g/dL (13.5-17.5); MCH 29.9 pg (26.0-34.0); MCHC 34.2 g/dL (31.0-37.0); MCV 87.4 fL (80.0-100.0); MEAN PLATELET VOLUME 8.7 fL (7.4-10.4); PLATELET COUNT 308 10x3/uL (130-400); RBC 4.62 10x6/uL (4.20-6.10); RDW 12.7 % (11.5-14.5); WBC 9.6 10x3/uL (4.8-10.8)
--- NOTE | 2018-10-30 14:38 | NUR ---
REC'D PT BACK TO CVICU. ALL MONITORING EQUIPMENT ATTACHED AND ALARMS SET. SOUND EFFECTS SUPERVISOR MS SET UP AND PT TAUGHT. VSS. AFEBRILE.
--- NOTE | 2018-10-30 16:42 | MORECARE ---
CASE MANAGEMENT DISCHARGE SUMMARY PATIENT: SANTIAGO GARCIA UNIT: [id number] ADM DATE: 10/29/18 AGE: 68 : 50 SEX: M ROOM/BED: [facility] AUTHOR: CUONG CASH PHYSICIAN: REFERRING PHYSICIAN: BRITTANY OJEDA MD DATE OF SERVICE: 10/30/18 Discharge Plan Patient Name: SANTIAGO GARCIA Facility: [facility]:[place] : 1950 Planned Disposition: Anticipated Discharge Date: Discharge Date: Expected LOS: Initial Reviewer: [email or web address] Initial Review Date: 10/29/2018 Generated: 10/30/18 5:42 pm Patient Name: SANTIAGO GARCIA Page 54177 at 1642 All edits/amendments must be made on the electronic document DICTATION DATE: 10/30/181641 LOW EMISSION AUTOMOBILE DESIGNER: JULIO CESAR 10/30/181641 RPT#: [id number] DC DATE: STATUS: ADM IN [facility] [address] [place] [address] END OF REPORT
--- NOTE | 2018-10-30 16:51 | MORECARE ---
CASE MANAGEMENT DISCHARGE SUMMARY PATIENT: SANTIAGO GARCIA UNIT: [id number] ADM DATE: 10/29/18 AGE: 68 : 50 SEX: M ROOM/BED: [facility] AUTHOR: CUONG CASH PHYSICIAN: REFERRING PHYSICIAN: BRITTANY OJEDA MD DATE OF SERVICE: 10/30/18 Discharge Plan Patient Name: SANTIAGO GARCIA Facility: [facility]:[place] : 1950 Planned Disposition: Anticipated Discharge Date: Discharge Date: Expected LOS: Initial Reviewer: [email or web address] Initial Review Date: 10/29/2018 Generated: 10/30/18 5:51 pm DCPIA - Discharge Planning Initial Assessment Updated by [email or web address]: Caroline Peter on 10/30/18 4:44 pm * Is the patient Alert and Oriented? Yes * How many steps to enter\exit or inside your home? * PCP DWORKIN * Pharmacy [facility] * Preadmission Environment Residential Facility * Facility Name [facility] - REHAB BED * ADLs Total Dependent * Equipment Wheelchair * List name and contact numbers for known caregivers / representatives who currently or will assist patient after discharge: ARGENTINA GARCIA - [facility]- [phone] * Verbal permission to speak to the caregivers and representatives has been obtained from the patient. Yes * Community resources currently utilized None * Additional services required to return to the preadmission environment? No * Can the patient safely return to the preadmission environment? Yes * Has this patient been hospitalized within the prior 30 days at any hospital? No Last DP export: 10/30/18 3:42 pm Patient Name: SANTIAGO GARCIA Page [id number] at 1651 All edits/amendments must be made on the electronic document DICTATION DATE: 10/30/181650 BARBACK: JULIO CESAR 10/30/181650 RPT#: [id number] DC DATE: STATUS: ADM IN [facility] [address] [place] [address] END OF REPORT
--- NOTE | 2018-10-30 17:00 | MORECARE ---
CASE MANAGEMENT DISCHARGE SUMMARY PATIENT: SANTIAGO GARCIA UNIT: [id number] ADM DATE: 10/29/18 AGE: 68 : 50 SEX: M [facility] AUTHOR: SHAILESH,DOC PHYSICIAN: REFERRING PHYSICIAN: BRITTANY OJEDA MD DATE OF SERVICE: 10/30/18 Discharge Plan Patient Name: SANTIAGO GARCIA Facility: [facility]:[place] : 1950 Planned Disposition: Anticipated Discharge Date: Discharge Date: Expected LOS: Initial Reviewer: [email or web address] Initial Review Date: 10/29/2018 Generated: 10/30/18 5:59 pm Comments DCP- Discharge Planning Updated by [email or web address]: Caroline Peter on 10/30/18 3:[address] Patient Name: SANTIAGO GARCIA Admission Status: Elective Accout number: [id number] Admission Date: 10-29-2018 : 1950 Admission Diagnosis:OTHER SPECIFIED DISEASES OF SPINAL CORD Attending: BRITTANY OJEDA Current LOS: 1 Anticipated DC Date: Planned Disposition: Primary Insurance: MEDICARE A & B Discharge Planning Comments: CM met with patient and sister Argentina at bedside. Patient states that he was in [facility] since the end of July for Rehab. Patient had surgery in July and has been in Rehab since awaiting next surgery. Patient will need rehab prior to being able to back to his home. CM uncertain if he will go to inpatient rehab or back to [facility]. Patient states he does have a wheelchair. CM will continue to follow and assist as needed with discharge planning / needs. Cook Manager: Caroline Peter DCPIA - Discharge Planning Initial Assessment Updated by [email or web address]: Caroline Peter on 10/30/18 4:44 pm * Is the patient Alert and Oriented? Yes * How many steps to enter\exit or inside your home? * PCP [facility] * Pharmacy [facility] * Preadmission Environment Longterm Facility * Facility Name [facility] - REHAB BED * ADLs Total Dependent * Equipment Wheelchair * List name and contact numbers for known caregivers / representatives who currently or will assist patient after discharge: ARGENTINA GARCIA - SISTER- [phone] * Verbal permission to speak to the caregivers and representatives has been obtained from the patient. Yes * Community resources currently utilized None * Additional services required to return to the preadmission environment? No * Can the patient safely return to the preadmission environment? Yes * Has this patient been hospitalized within the prior 30 days at any hospital? No Last DP export: 10/30/18 3:51 pm Patient Name: SANTIAGO GARCIA Page [id number] at 1700 All edits/amendments must be made on the electronic document DICTATION DATE: 10/30/181658 FOOD SERVICE ORDER CLERK: JULIO CESAR 10/30/181658 RPT#: [id number] DC DATE: STATUS: ADM IN [facility] [address] [place] [address] END OF REPORT
[2018-10-31] VITALS (24 sets, daily range): BP systolic 87–119; BP diastolic 32–52
--- NOTE | 2018-10-31 07:00 | NUR ---
AWAKE AND ALERT SKIN WARM AND DRY. JAIMIE DRAIN INTACT BULB COMPRESSED. BLOODY DRAINAGE NOTED. BARTON CATH PATENT AND DRAINING CLEAR AVA URINE. IV RIGHT FOREARM WITHOUT REDNESS OR SWELLING INFUSING WITH LR AT 50 ML HOUR. MORPHINCE CONSERVATION OR HERITAGE ARCHITECT WITHIN HANDS REACH. SIDE RAILS ELEVATED. HEAD OF BED ELEVATED 30 DEGREES.
--- NOTE | 2018-10-31 08:00 | NUR ---
REPOSITIONED UP IN BED. CLEAR LIQUIDS SERVED AT PATEINT REQUEST.
--- NOTE | 2018-10-31 09:30 | NUR ---
DR. OJEDA AND PHYSICAL THERAPY HERE. PATIENT SAT UP ON SIDE OF BED WITH PHYSICAL THERAPY.
--- NOTE | 2018-10-31 10:30 | NUR ---
REPOSITIONED ON SIDE. PO FLUIDS TAKEN WELL. PAIN RELIEVED WITH MORPHINE RN LABOR AND DELIVERY.
--- NOTE | 2018-10-31 10:33 | NUR ---
REHAB PRESCREENING Rehab referral received and chart reveiwed. PT and OT evaluations are pending. Rehab will continue to follow for evals in order to assess admission criteria. Thank you for this referral! Hannah Mathis, KINDERGARTEN AIDE Rehab Legal Practice Manager
--- NOTE | 2018-10-31 12:30 | NUR ---
REPOSITION, VERY DIFFICULTY TO GET COMFORTABLE. ENCOURAGE PATIENT TO MOVE SELF TO GET COMFORTABLE.
--- NOTE | 2018-10-31 13:08 | NUR ---
FULL LIQUID LUNCH SERVED. SISTER HERE UPDATE GIVEN
--- NOTE | 2018-10-31 14:00 | NUR ---
REPOSITIONED ON RIGHT SIDE. TOLERATED FAIR.
--- NOTE | 2018-10-31 14:41 | NUR ---
PHYSICAL THERAPY HERE WORKING WITH PATIENT
--- NOTE | 2018-10-31 16:00 | NUR ---
repositioned. patient is doing exercises with his arms. lift them up and down. sister at bedside
[2018-11-01] VITALS (24 sets, daily range): BP systolic 80–118; BP diastolic 30–54
--- NOTE | 2018-11-01 11:54 | NUR ---
REHAB PRESCREENING Dr. Bello notes increased strength in lower extremities. OT evaluation is still pending. Rehab will continue to follow for progress with PT and JAIMIE drain dc. Patient will need to be able to participate in 3 hours of therapy per day in order to meet admission criteria. Hannah Mathis, OFFICE MACHINERY OR EQUIPMENT INSTALLER Rehab PD
[2018-11-01 16:35] LABS: APPEARANCE CLEAR (CLEAR); BILIRUBIN NEGATIVE (NEGATIVE); COLOR YELLOW (YELLOW); GLUCOSE NEGATIVE (NEGATIVE); KETONE NEGATIVE (NEGATIVE); NITRITE POSITIVE (NEGATIVE); PROTEIN NEGATIVE (NEGATIVE); SPECIFIC GRAVITY 1.015 (1.005-1.020); UROBILINOGEN NORMAL (NORMAL)
[2018-11-01 16:36] LABS: EPITHELIAL CELLS 0-5 /hpf (0-5); RED CELLS - URINE 0-5 /hpf (0-5); WHITE CELLS - URINE 0-5 /hpf (0-5)
[2018-11-01 16:37] LABS: AMORPHOUS SEDIMENT <1+ /lpf (NONE SEEN); BACTERIA MODERATE /hpf (NONE SEEN)
[2018-11-02] VITALS (24 sets, daily range): BP systolic 97–134; BP diastolic 39–82; Ht 175.3 cm; Wt 112.0 kg
[2018-11-02 05:44] LABS: BASOPHILS 0.3 % (0-2); EOSINOPHILS 1.3 % (0-7); HEMATOCRIT 32.2 % (42.0-54.0); HEMOGLOBIN 10.7 g/dL (13.5-17.5); LYMPHOCYTES 17.5 % (15-50); MCH 29.3 pg (26.0-34.0); MCHC 33.2 g/dL (31.0-37.0); MCV 88.2 fL (80.0-100.0); MEAN PLATELET VOLUME 9.3 fL (7.4-10.4); MONOCYTES 9.9 % (2-11); PLATELET COUNT 268 10x3/uL (130-400); RBC 3.65 10x6/uL (4.20-6.10); WBC 7.7 10x3/uL (4.8-10.8)
[2018-11-02 06:06] LABS: CALC OSMOLALITY 281 mosm/kg (275-300); CALCIUM 8.4 mg/dL (8.5-10.1); CARBON DIOXIDE 28.1 mmol/L (21.0-32.0); CHLORIDE - SERUM 106 mmol/L (98-107); CREATININE - SERUM 0.8 mg/dL (0.6-1.3); GLUCOSE 104 mg/dL (74-106); SODIUM 142 mmol/L (136-145); UREA NITROGEN 10 mg/dL (7-18); eGFR NON AFRICAN AMERICAN > 90 mL/min (90-120)
[2018-11-02 11:36] LABS: APPEARANCE HAZY (CLEAR); BILIRUBIN NEGATIVE (NEGATIVE); COLOR STRAW (YELLOW); EPITHELIAL CELLS 0-5 /hpf (0-5); GLUCOSE NEGATIVE (NEGATIVE); KETONE NEGATIVE (NEGATIVE); NITRITE NEGATIVE (NEGATIVE); PROTEIN NEGATIVE (NEGATIVE); RED CELLS - URINE RARE /hpf (0-5); SPECIFIC GRAVITY 1.005 (1.005-1.020); UROBILINOGEN NORMAL (NORMAL); WHITE CELLS - URINE 0-5 /hpf (0-5)
[2018-11-02 11:37] LABS: BACTERIA MODERATE /hpf (NONE SEEN); MUCUS <1+ /lpf (NONE SEEN)
--- NOTE | 2018-11-02 13:43 | NUR ---
PT REPOSITIONED FOR COMFORT AND TURNED. CALL LIGHT IN REACH.
--- NOTE | 2018-11-02 15:18 | NUR ---
OT NOTE: MAX ASSIST WITH SUPINE TO SIT; ABLE TO SIT ON EDGE OF BED UNSUPPORTED FOR APPROX 8 MIN; PERFORMED UE AND LE AROM EXS; FEEDING WITH ADAP EQUIP BUT DOING WELL WITH THIS. MOD ASSIST FOR ROLLING SIDE TO SIDE. QUIQUE WILL,OTR/L
--- NOTE | 2018-11-02 17:50 | NUR ---
ASSISTED PT WITH MEAL TRAY SET UP. PT FEEDS SELF.
--- NOTE | 2018-11-02 20:00 | NUR ---
PT REPOSITIONED PER REQUEST. DENIES FURTHER NEEDS OR PAIN.
[2018-11-03] VITALS (22 sets, daily range): BP systolic 98–137; BP diastolic 46–65
[2018-11-03 05:45] LABS: BASOPHILS 0.2 % (0-2); EOSINOPHILS 3.3 % (0-7); HEMATOCRIT 33.4 % (42.0-54.0); HEMOGLOBIN 11.1 g/dL (13.5-17.5); IMMATURE GRANULOCYTES 0.7 % (0-5); LYMPHOCYTES 19.7 % (15-50); MCH 29.4 pg (26.0-34.0); MCHC 33.2 g/dL (31.0-37.0); MCV 88.6 fL (80.0-100.0); MEAN PLATELET VOLUME 9.4 fL (7.4-10.4); MONOCYTES 7.6 % (2-11); NEUTROPHILS 68.5 % (40-80); PLATELET COUNT 269 10x3/uL (130-400); RBC 3.77 10x6/uL (4.20-6.10); RDW 12.9 % (11.5-14.5); WBC 8.1 10x3/uL (4.8-10.8)
[2018-11-03 06:09] LABS: CALC OSMOLALITY 281 mosm/kg (275-300); CALCIUM 8.4 mg/dL (8.5-10.1); CARBON DIOXIDE 28.1 mmol/L (21.0-32.0); CHLORIDE - SERUM 106 mmol/L (98-107); CREATININE - SERUM 0.8 mg/dL (0.6-1.3); GLUCOSE 101 mg/dL (74-106); SODIUM 142 mmol/L (136-145); UREA NITROGEN 10 mg/dL (7-18); eGFR NON AFRICAN AMERICAN > 90 mL/min (90-120)
--- NOTE | 2018-11-03 07:00 | NUR ---
PATIENT RESTING IN BED C CALL REID IN REACH. AWAKE ALERT AND ORIENTED. MOVES ALL EXTREMETIES. MIDLINE INCISION TO BACK DRESSED CDI. FEET ELEVATED ON PILLOW LUNG GALE CLEAR. VSS. WILL CONTINUE TO MONITOR.
--- NOTE | 2018-11-03 08:47 | NUR ---
PATRIENT ABUMLATED UP AND DOWN PANDA VIA WALKER WITH PT. NO ISSUES AROSE. NOW IN BED WITH AT BEDSIDE.
--- NOTE | 2018-11-03 09:00 | NUR ---
PATIENT UP OUT OF BED WITH THERAPY AT THIS TIME. NO VITAL SIGNS TO RECORD FOR THIS HOUR.
--- NOTE | 2018-11-03 09:11 | NUR ---
OT NOTE: PT VERY AGITATED THIS AM. COMPLAINTS ABOUT BED, POSITIONING, PAIN, AND MEDS. NORMALLY VERY UPBEAT. ASSISTED PT WITH SUPINE TO SIT WITH MAX ASSIST; PT WITH SEVERE PAIN REPORTED IN L KNEE IN FLEX WHILE SITTING ON EDGE OF BED. EXTENDED KNEE AND SLOWLY LET BACK INTO KNEE FLEX. REQUIRED INCREASED TIME TODAY TO PERFORM SITTING WITHOUT SUPPORT. PERFORMED SIT TO STAND X 2 TRIALS WITH MYSELF AND P.T. ONCE IN STANDING WITH WALKER, ABLE TO MAINTAIN WITH MIN ASSIST X APPROX 20-30 SECS. ASSISTED BACK TO SUPINE AND REPOSITIONED NUMEROUS TIMES FOR COMFORT. PILLOW PLACED UNDER R HIP FOR COMFORT AND PRESSURE RELIEF. QUIQUE WILL, OTR/L
--- NOTE | 2018-11-03 10:10 | NUR ---
REMOVED JAIMIE DRAIN PER DR. OJEDA ORDER. CONTAINED 28ML SEROSANGUINEOUS DRAINAGE. CHANGED DRESSING WITH BORDERED GUAZE DRESSING.
--- NOTE | 2018-11-03 10:48 | NUR ---
REHAB PRESCREENING Rehab continues to follow this patient. He is showing some improvement. Will continue to follow for mobility and endurance. He will need to be able to participate in the three hours of therapy required in order to meet admission criteria. Thank you for this referral! Hannah Mathis, VACUUM DRUM DRIER OPERATOR Rehab PD
--- NOTE | 2018-11-03 12:00 | NUR ---
REPOSITIONED PATIENT IN BED. VSS. WILL CONTINUE TO MONITOR
--- NOTE | 2018-11-03 12:29 | NUR ---
KARL ATE 25% OF BREAKFAST. RESTING IN BED COMFORTABLY. NO COMPLAINTS. VSS.
--- NOTE | 2018-11-03 13:35 | NUR ---
REPOSITIONED PATIENT IN BED FROM LEFT SIDE TO BACK. PATIENT COMFORTABLE. VSS. NO COMPLAINTS
--- NOTE | 2018-11-03 15:46 | NUR ---
REPOSITIONED PATIENT BACK TO LEFT SIDE PER REQUEST. CHECKED SACRA AREA-NO REDNESS OR SKIN TEARS. VSS. WILL CONTINUE TO MONITOR
--- NOTE | 2018-11-03 17:00 | NUR ---
PATIENT RESTING IN BED C CALL REID IN REACH. REPOSITIONED. VSS. NO COMPLAINTS
--- NOTE | 2018-11-03 17:39 | NUR ---
OT NOTE: PT COMPLETED GROOMING TASKS WITH SET UP. THANK YOU, RBIANNA CARTY
--- NOTE | 2018-11-03 18:30 | NUR ---
ORDERED FLEETS ENEMA PER DR. RAZO
--- NOTE | 2018-11-03 22:00 | NUR ---
PT GIVEN FLEETS ENEMA PER ORDER. INCONTINENT MODERATE LIQUID BROWN BM.PT CLEANED UP AND LINEN CHANGED. TOLERATED WELL. POSITIONED FOR COMFORT
[2018-11-04] VITALS (24 sets, daily range): BP systolic 82–129; BP diastolic 38–71
[2018-11-04 04:18] LABS: BASOPHILS 0.4 % (0-2); EOSINOPHILS 3.3 % (0-7); HEMATOCRIT 34.5 % (42.0-54.0); HEMOGLOBIN 11.6 g/dL (13.5-17.5); IMMATURE GRANULOCYTES 0.9 % (0-5); LYMPHOCYTES 18.8 % (15-50); MCH 29.4 pg (26.0-34.0); MCHC 33.6 g/dL (31.0-37.0); MCV 87.6 fL (80.0-100.0); MEAN PLATELET VOLUME 9.2 fL (7.4-10.4); NEUTROPHILS 68.6 % (40-80); PLATELET COUNT 298 10x3/uL (130-400); RBC 3.94 10x6/uL (4.20-6.10); RDW 12.9 % (11.5-14.5); WBC 8.1 10x3/uL (4.8-10.8)
[2018-11-04 04:30] LABS: CALC OSMOLALITY 280 mosm/kg (275-300); CALCIUM 8.8 mg/dL (8.5-10.1); CARBON DIOXIDE 28.2 mmol/L (21.0-32.0); CHLORIDE - SERUM 105 mmol/L (98-107); CREATININE - SERUM 0.7 mg/dL (0.6-1.3); GLUCOSE 106 mg/dL (74-106); POTASSIUM - SERUM 3.9 mmol/L (3.5-5.1); SODIUM 142 mmol/L (136-145); UREA NITROGEN 8 mg/dL (7-18); eGFR NON AFRICAN AMERICAN > 90 mL/min (90-120)
--- NOTE | 2018-11-04 07:00 | NUR ---
PATIENT ON BED WILSON AWAKE AND ALERT WITH STABLE VSS ON ROOM AIR. SCD HOSE APPLIED. NO SIGNS OF SKIN BREAK DOWN. POSTERIOR NECK INCISION DRESSED CDI. WILL CONTINUE TO MONITOR
--- NOTE | 2018-11-04 07:30 | NUR ---
REMOVED FROM BEDPAN. PATINET HAD MEDIUM LOOSE BM. NURSES CLEANED AND CHANGED AND PULLED UP IN BED FOR BREAKFAST.
--- NOTE | 2018-11-04 08:40 | NUR ---
ATE 60% OF BREAKFAST. NO COMPLAINTS.
--- NOTE | 2018-11-04 09:17 | NUR ---
PLACED PATIENT ON BED WILSON AGAIN FOR SMALL LOOSE BM. NURSES CLEANED AND CHANGED AND CHANGED ALL PADS UNDERNEATH. ALSO CHANGED DRESSING TO POSTERIOR NECK. SMALL SEROSAGUINEOUS DRAINAGE FROM JAIMIE DRAIN. NO DRAINAGE FROM INCISION. OSCAR INTACT. APPLIED NEW BORDERED GUAZE DRESSING. PULLED UP IN BED. PHYSICAL THERAPY HERE FOR THERAPY.
--- NOTE | 2018-11-04 10:00 | NUR ---
PATIENT ASSISTED TO SIT UP IN CHAIR PER PHYS THERAPY.
--- NOTE | 2018-11-04 10:34 | NUR ---
Reviewed chart Regular diet ordered with 60% intake of breakfast Documented pt ate 25% of breakfast and lunch yesterday Pt reports eating fairly well however he has a sore on tongue which is inhibiting intake Assisted pt with menu selection to help increase po intake Added Ensure to trays for now RD following
--- NOTE | 2018-11-04 11:00 | NUR ---
PATIENT SITTING UP IN CHAIR PER PT. VSS. NO COMPLAINTS.
--- NOTE | 2018-11-04 11:20 | NUR ---
PATIENT READY TO GO BACK TO BED. NURSE CALLED ARYAN FROM PHYS THERAPY TO HELP TRANSFER BACK.
--- NOTE | 2018-11-04 13:06 | NUR ---
PATIENT CONSUMED 100% LUNCH. STILL UP IN CHAIR.
--- NOTE | 2018-11-04 13:38 | NUR ---
PATIENT RETURNED TO BED PER PT. VSS.
--- NOTE | 2018-11-04 14:58 | MORECARE ---
CASE MANAGEMENT DISCHARGE SUMMARY PATIENT: SANTIAGO GARCIA UNIT: [id number] ADM DATE: 10/29/18 AGE: 68 : 50 SEX: M ROOM/BED: [facility] AUTHOR: SHAILESH,DOC PHYSICIAN: REFERRING PHYSICIAN: BRITTANY OJEDA MD DATE OF SERVICE: 11/04/18 Discharge Plan Patient Name: SANTIAGO GARCIA Facility: [facility]:[place] : 1950 Planned Disposition: Anticipated Discharge Date: Discharge Date: Expected LOS: Initial Reviewer: [email or web address] Initial Review Date: 10/29/2018 Generated: 11/04/18 3:58 pm Comments DCP- Discharge Planning Updated by [email or web address]: Caroline Peter on 11/04/18 1:[address] CM left message with Makayla in Rehab to see if patient would meet criteria since he was up in chair for over 2 hours today. CM will continue to follow and assist as needed with discharge planning / needs. 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 Patient states that he was in [facility] since the end of July for Rehab. Patient had surgery in July and has been in Rehab since awaiting next surgery. Patient will need rehab prior to being able to back to his home. CM uncertain if he will go to inpatient rehab or back to [facility]. Patient states he does have a wheelchair. CM will continue to follow and assist as needed with discharge planning / needs. Raw Sampler: Caroline Peter DCPIA - Discharge Planning Initial Assessment Updated by [email or web address]: Caroline Peter on 10/30/18 4:44 pm * Is the patient Alert and Oriented? Yes * How many steps to enter\exit or inside your home? * PCP JONNATHAN * Pharmacy [facility] * Preadmission Environment Jail Facility * Facility Name [facility] - REHAB BED * ADLs Total Dependent * Equipment Wheelchair * List name and contact numbers for known caregivers / representatives who currently or will assist patient after discharge: ARGENTINA GARCIA - SISTER- [phone] * Verbal permission to speak to the caregivers and representatives has been obtained from the patient. Yes * Community resources currently utilized None * Additional services required to return to the preadmission environment? No * Can the patient safely return to the preadmission environment? Yes * Has this patient been hospitalized within the prior 30 days at any hospital? No Last DP export: 10/30/18 3:59 pm Patient Name: SANTIAGO GARCIA Page [id number] at 1458 All edits/amendments must be made on the electronic document DICTATION DATE: 11/04/181456 PROPULSION GENERATOR REPAIRER: JULIO CESAR 11/04/181456 RPT#: [id number] DC DATE: STATUS: ADM IN [facility] [address] [place] [address] END OF REPORT
--- NOTE | 2018-11-04 14:59 | NUR ---
OT NOTE: PT PERFORMED VERY WELL TODAY. BED MOB WITH MOD ASSIST X 2 FOR SUPINE TO SIT; SIT TO STAND WITH MOD ASSIST; ABLE TO TAKE STEPS WITH MAX ASSIST ON L SIDE AND MOD ASSIST ON R SIDE DUE TO SEVERE PAIN IN L LE WHEN BEARING WT. PT ABLE TO AMB APPROX 6 STEPS FROM BED TO CHAIR; TOLERATED SITTING UP IN CHAIR FOR APPROX 3-4 HRS. ASSISTED BACK TO BED WITH INCREASED ASSIST, HOWEVER, PT VERY FATIGUED FROM SITTING UP IN CHAIR. ALSO PERFORMED EXS WHILE UP IN CHAIR..AND ATE LUNCH WHILE UP IN CHAIR. PT WILL DO WELL IN REHAB. HE IS EXTREMELY MOTIVATED AND SHOWING INCREASED MOVEMENT IN HANDS AND LEGS DAILY. QUIQUE WILL, OTR/L
--- NOTE | 2018-11-04 15:12 | NUR ---
ASSISTED PATIENT ON AND OFF BED WILSON FOR SMALL LOOSE BM. NURSE CLEANED. VSS. WILL CONTINUE TO MONITOR
--- NOTE | 2018-11-04 16:25 | NUR ---
PATIENT RESTING IN BED IN STABLE CONDITION AWAKE ALERT AND ORIENTED WITH STABLE VS. REPORT GIVEN TO ALEJA HOOD.
--- NOTE | 2018-11-04 17:43 | NUR ---
PT REPOSITIONED AND PULLED UP IN BED. HIS MEAL TRAY WAS PROVIDED. PT DENIES PAIN/NEEDS AT THIS TIME. CALL LIGHT IN REACH. WILL CONT POC.
--- NOTE | 2018-11-04 19:15 | NUR ---
PT PLACED ON BEDPAN, SEMI FORMED BM COMPLETELY FILLED BEDPAN, PT DENIES PAIN OR NEEDS AT THIS TIME VSS
--- NOTE | 2018-11-04 21:00 | NUR ---
PT RESTING IN BED COMFORTABLY, DENIES PAIN OR NEEDS AT THIS TIME, VSS, REPOSITIONED FOR COMFORT
--- NOTE | 2018-11-04 23:00 | NUR ---
REASSESSMENT COMPLETED, SEE FLOW SHEET/MAR FOR FURTHER, PT AAOx4, DENIES PAIN, VSS, WILL CONTINUE TO ASSESS
[2018-11-05] VITALS (15 sets, daily range): BP systolic 92–131; BP diastolic 37–59
--- NOTE | 2018-11-05 01:00 | NUR ---
PT RESTING COMFORTABLY IN BED, REPOSITIONED FOR COMFORT, VSS, PT DENIES NEEDS AT THIS TIME
--- NOTE | 2018-11-05 03:00 | NUR ---
REASSESSMENT COMPLETED, SEE FLOW SHEET FOR FURTHER, PT AAOx4, NO ACUTE CHANGES OR DUISTRESS NOTED, VSS, REPOSITIONED FOR COMFORT, BARTON CATRE COMPLETED, WILL CONTINUE TO ASSESS
--- NOTE | 2018-11-05 04:00 | NUR ---
PT PLACED ON BEDPAN, VSS, NO OTHER NEEDS
[2018-11-05 04:39] LABS: BASOPHILS 0.3 % (0-2); EOSINOPHILS 3.3 % (0-7); HEMATOCRIT 33.2 % (42.0-54.0); IMMATURE GRANULOCYTES 0.7 % (0-5); LYMPHOCYTES 19.2 % (15-50); MCH 28.9 pg (26.0-34.0); MCHC 33.1 g/dL (31.0-37.0); MCV 87.4 fL (80.0-100.0); MEAN PLATELET VOLUME 8.9 fL (7.4-10.4); NEUTROPHILS 67.5 % (40-80); PLATELET COUNT 281 10x3/uL (130-400); RDW 13.4 % (11.5-14.5); WBC 8.6 10x3/uL (4.8-10.8)
[2018-11-05 04:58] LABS: CALC OSMOLALITY 278 mosm/kg (275-300); CALCIUM 8.5 mg/dL (8.5-10.1); CARBON DIOXIDE 29.2 mmol/L (21.0-32.0); CHLORIDE - SERUM 104 mmol/L (98-107); CREATININE - SERUM 0.8 mg/dL (0.6-1.3); GLUCOSE 102 mg/dL (74-106); POTASSIUM - SERUM 4.1 mmol/L (3.5-5.1); SODIUM 140 mmol/L (136-145); eGFR NON AFRICAN AMERICAN > 90 mL/min (90-120)
[2018-11-05 04:59] LABS: UREA NITROGEN 13 mg/dL (7-18)
--- NOTE | 2018-11-05 10:51 | NUR ---
PT FEEDS SELF BREAKFAST THIS AM WITH OUT PROBLEMS. ASSISTED PT WITH BED WILSON AND PT HAD SM AMT SOFT BROWN STOOL.
--- NOTE | 2018-11-05 13:40 | NUR ---
PT OOB TO CHAIR WITH Lee CRUZ.
--- NOTE | 2018-11-05 14:51 | NUR ---
OT NOTE: PT DEMONSTRATED INCREASED LE MOVEMENT TODAY WHEN SLIDING LEGS OFF OF BED; REQUIRED MOD ASSIST WITH REMAINDER OF SUPINE TO SIT; MAX ASSIST FOR SIT TO STAND ; ABLE TO TAKE APPROX 5 STEPS WITH MAX ASSIST ON L SIDE AND MOD ASSIST ON R SIDE. TOLERATED SITTING UP IN CHAIR APPROX 1 -1.5 HRS TODAY. ABLE TO EAT LUNCH WITH SET UP OF TRAY AND USE OF ADAP EQUIP. ASSISTED BACK TO BED WITH SAME AMOUNT OF ASSIST. SIT TO SUPINE WITH MAX ASSIST. QUIQUE WILL, OTR/L
--- NOTE | 2018-11-05 15:45 | NUR ---
REPORT CALLED TO REHAB. WILL TRANSFER ORDERED.
--- NOTE | 2018-11-06 10:16 | MORECARE ---
CASE MANAGEMENT DISCHARGE SUMMARY PATIENT: SANTIAGO GARCIA UNIT: [id number] ADM DATE: 10/29/18 AGE: 68 : 50 SEX: M ROOM[facility]ED: [facility] AUTHOR: SHAILESH,DOC PHYSICIAN: REFERRING PHYSICIAN: BRITTANY OJEDA MD DATE OF SERVICE: 11/06/18 Discharge Plan Patient Name: SANTIAGO GARCIA Facility: [facility]:[place] : 1950 Planned Disposition: Anticipated Discharge Date: Discharge Date: 11/05/2018 Expected LOS: Initial Reviewer: [email or web address] Initial Review Date: 10/29/2018 Generated: 11/06/18 11:16 am Comments DCP- Discharge Planning Updated by [id number]: Caroline Peter on 11/04/18 1:[address] CM left message with Makayla in Rehab to see if patient would meet criteria since he was up in chair for over 2 hours today. CM will continue to follow and assist as needed with discharge planning / needs. DCP- Discharge Planning Updated by [email or web address]: Caroline Peter on 10/30/18 3:[address] Patient Name: SANTIAGO GARCIA Admission Status: Elective Accout number: [id number] Admission Date: 10-29-2018 : 1950 Admission Diagnosis:OTHER SPECIFIED DISEASES OF SPINAL CORD Attending: BRITTANY OJEDA Current LOS: 1 Anticipated DC Date: Planned Disposition: Primary Insurance: MEDICARE A & B Discharge Planning Comments: CM met with patient and sister [place] at bedside. Patient states that he was in [facility] since the end of July for Rehab. Patient had surgery in July and has been in Rehab since awaiting next surgery. Patient will need rehab prior to being able to back to his home. CM uncertain if he will go to inpatient rehab or back to [facility]. Patient states he does have a wheelchair. CM will continue to follow and assist as needed with discharge planning / needs. Career Services Assistant: Caroline Peter DCPIA - Discharge Planning Initial Assessment Updated by [email or web address]: Caroline Peter on 10/30/18 4:44 pm * Is the patient Alert and Oriented? Yes * How many steps to enter\exit or inside your home? * PCP RAQUELIN * Pharmacy [facility] * Preadmission Environment Long-Term Facility * Facility Name [facility] - REHAB BED * ADLs Total Dependent * Equipment Wheelchair * List name and contact numbers for known caregivers / representatives who currently or will assist patient after discharge: ARGENTINA GARCIA - SISTER- [phone] * Verbal permission to speak to the caregivers and representatives has been obtained from the patient. Yes * Community resources currently utilized None * Additional services required to return to the preadmission environment? No * Can the patient safely return to the preadmission environment? Yes * Has this patient been hospitalized within the prior 30 days at any hospital? No Last DP export: 11/04/18 1:58 pm Patient Name: SANTIAGO GARCIA Page [id number] at 1016 All edits/amendments must be made on the electronic document DICTATION DATE: 11/06/18 1016 LEATHER STITCHER: JULIO CESAR 11/06/18 1016 RPT#: [id number] DC DATE:11/05/18 STATUS: DIS IN [facility] [address] [place] [address] END OF REPORT
--- NOTE | 2018-11-25 09:18 | OP ---
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 SURGEON: Brittany Bello MD PROCEDURE: Laminoplasty at C3, C4, C5, C6 and C7 with the Orthofix spine NewBridge laminoplasty instrumentation. DESCRIPTION AND TECHNIQUE: After induction of general endotracheal anesthesia, the patient was placed in [place] head pins. He was rolled prone and on chest and hip rolls. The cervical and thoracic spine were prepped and draped in usual sterile fashion. The C3-4 interspace was confirmed with fluoroscopic x-ray and a spinal needle. After infiltration of 1:100,000 with epinephrine and 1% lidocaine, a skin incision was carried out from the spinous process of C2 down to T1. The spinous processes and lamina and facet joints at C3-C4, C5-C6, and C7-T1 were exposed in the subperiosteal manner. The levels were confirmed with fluoroscopic x-ray. The lateral gutters were cut into the lamina on both sides with the Midas-Damon drill. The right lamina was greenstick fractured. The complete dissection through the lamina on the left side was accomplished with the Midas-Damon drill under microscopic illumination. Hypertrophied ligamentum flavum was removed on the left side. Next, these Orthofix spine and NewBridge laminoplasty implants were interposed on the left side, I think around the facet joints and the lamina at C3, C4, C5, C6, and C7. Following this, the dura was decompressed well. Meticulous hemostasis was maintained throughout the wound. A 10 laminar screws were used to anchor the hardware as well as 5 lateral mass screws. Excellent position of hardware was confirmed with fluoroscopic x-ray. Next, the fascia was closed with 2-0 Vicryl suture, the subdermal layer was closed with 3-0 Vicryl suture. The skin was closed with royal. A vertical mattress suture was used to reinforce the wound edges. A sterile dressing was applied to the wound. The patient was awakened in good condition, taken to recovery, awake and neurologically unchanged. All counts were reported as correct. Estimated blood loss was 200 cc. TRANSINT:[id number] Voice Confirmation ID: [id number] DOCUMENT ID: [id number] BRITTANY BELLO MD at 0918 CC: [id number] DICTATION DATE: 11/20/18 1352 HEEL COMPRESSOR: 11/20/18 2158 DIS IN 11/05/18 [place] [address]
== END 2018-11-05 17:00 | DRG 29 ==
LOC: D.CVICU 10-29 12:32 → D.SDCHOLD 10-30 07:30 → D.CVICU 11-05 17:00
PROVIDERS: Anesthesiology; Family Medicine; Internal Medicine Nephrology; ADMIT Neurological Surgery
PROC: 0RH104Z Insertion of Internal Fixation Device into Cervical Vertebral Joint, Open Approach (ICD-10-PCS; 2018-10-30)
PROC: 00NW0ZZ Release Cervical Spinal Cord, Open Approach (ICD-10-PCS; principal; 2018-10-30 07:30)
DX: G95.89 Other specified diseases of spinal cord (principal); N39.0 Urinary tract infection, site not specified; R31.9 Hematuria, unspecified; D64.9 Anemia, unspecified; K59.00 Constipation, unspecified; M48.8X6 Other specified spondylopathies, lumbar region; M48.061 Spinal stenosis, lumbar region without neurogenic claudication

== ENCOUNTER 2018-11-05 18:01 | Inpatient (IN) | payer MEDICARE ==
[~2018-11-05] VITALS: Ht 175.3 cm; Wt 108.9 kg
--- NOTE | 2018-11-05 16:35 | NUR ---
RECIEVED FROM CVICU/ BED.ORIENTED TO ROOM AND SURROUNDINGS.CL IN REACH.1ST STEP MATTRESS ON.
[2018-11-05 19:00] VITALS: BP 125/58
--- NOTE | 2018-11-05 19:00 | NUR ---
THE PATIENT WAS LYING IN BED AND WATCHING TELEVISION WHEN STAFF ENTERED HIS AREA. BED IS IN THE LOW POSITION WITH SIDERAILS X2 AND CALL LIGHT WITHIN REACH. THE PATIENT DEMONSTRATES APPROPRIATE USE OF A CALL LIGHT. THE PATIENT APPEARS COMFORTABLE WITH NO QUESTIONS OR CONCERNS AT THIS TIME.
[2018-11-05 23:12] VITALS: BP 125/58; BMI 35.5
--- NOTE | 2018-11-06 03:22 | NUR ---
THE PATIENT APPEARS TO BE SLEEPING WITH BED IN LOW POSITION WITH SIDERAILS X2 AND CALL LIGHT WITHIN REACH.
[2018-11-06 07:01] LABS: BASOPHILS 0.4 % (0-2); EOSINOPHILS 3.1 % (0-7); HEMATOCRIT 33.9 % (42.0-54.0); HEMOGLOBIN 11.1 g/dL (13.5-17.5); IMMATURE GRANULOCYTES 1.2 % (0-5); LYMPHOCYTES 15.8 % (15-50); MCH 29.3 pg (26.0-34.0); MCHC 32.7 g/dL (31.0-37.0); MONOCYTES 10.2 % (2-11); NEUTROPHILS 69.3 % (40-80); PLATELET COUNT 306 10x3/uL (130-400); RBC 3.79 10x6/uL (4.20-6.10); RDW 13.5 % (11.5-14.5); WBC 8.1 10x3/uL (4.8-10.8)
[2018-11-06 07:08] LABS: MCV 89.4 fL (80.0-100.0)
[2018-11-06 07:17] LABS: CALC OSMOLALITY 286 mosm/kg (275-300); CALCIUM 8.5 mg/dL (8.5-10.1); CARBON DIOXIDE 28.4 mmol/L (21.0-32.0); CHLORIDE - SERUM 106 mmol/L (98-107); CREATININE - SERUM 0.7 mg/dL (0.6-1.3); GLUCOSE 100 mg/dL (74-106); POTASSIUM - SERUM 4.4 mmol/L (3.5-5.1); SODIUM 144 mmol/L (136-145); UREA NITROGEN 12 mg/dL (7-18); eGFR NON AFRICAN AMERICAN > 90 mL/min (90-120)
[2018-11-06 08:00] VITALS: BP 125/68
--- NOTE | 2018-11-06 09:43 | NUR ---
PATIENT IS ALERT/ORIENT. CALL LIGHT WITHIN REACH. VOICES NO NEEDS AT THIS TIME. WILL CONTINUE WITH PLAN OF CARE
[2018-11-06 11:00] VITALS: Ht 175.3 cm; Wt 108.9 kg
--- NOTE | 2018-11-06 11:51 | NUR ---
OCCUPATIONAL THERAPIST IN ROOM. HELPING PATIENT WITH SHOWER.
--- NOTE | 2018-11-06 12:00 | NUR ---
PATIENT SITTING UP AT THE SIDE OF THE BED IN WHEELCHAIR TO EAT LUNCH
--- NOTE | 2018-11-06 18:07 | NUR ---
PATIENT IS A TOTAL ASST OF TWO. HAS A BARTON CATH. USING BED WILSON WHEN NEEDED
[2018-11-06 19:00] VITALS: BP 113/57
--- NOTE | 2018-11-06 19:49 | NUR ---
PATIENT RECEIVED LAYING IN BED WATCHING TV. PATIENT ASSESSMENT & VITAL SIGNS DONE. PATIENT ON BED WILSON, IT WAS REMOVED & PATIENT HAD BM. PATIENT CLEANED & CALMOSEPTINE APPLIED TO RED AREA OF BUTTOCKS. PATIENT HAD NO C/O PAIN OR DISTRESS. PATIENT BED LOW. ALARM ON. CALL LIGHT WITHIN REACH. WILL CONTINUE TO MONITOR.
--- NOTE | 2018-11-07 01:11 | NUR ---
PATIENT EYES CLOSED. RESPIRATIONS 18 & EVEN. PATIENT BED LOW. ALARM ON. CALL LIGHT WITHIN REACH. WILL CONTINUE TO MONITOR.
--- NOTE | 2018-11-07 07:50 | NUR ---
PATIENT SITTING UP IN BED TO EAT BREAKFAST. ALERT/ORIENT. ON A FIRST STEP MATTRESS. CALL LIGHT WITHIN REACH. VOICES NO NEEDS AT THIS TIME. WILL CONTINUE WITH PLAN OF CARE
[2018-11-07 08:00] VITALS: BP 131/60
--- NOTE | 2018-11-07 09:52 | NUR ---
PATIENT IN REHAB ROOM. WORKING WITH PHYSICAL THERAPIST. DENIES ANY PAIN/DISC AT THIS TIME.
--- NOTE | 2018-11-07 14:00 | NUR ---
PATIENT PUT BACK TO BED AFTER THERAPY. TOTAL ASST OF TWO WITH SLIDING BOARD
--- NOTE | 2018-11-07 18:17 | NUR ---
RESTING QUIETLY IN BED. NO S/S DISTRESS. CALL LIGHT IN REACH. BED IN LOWEST POSITION.
--- NOTE | 2018-11-07 19:40 | NUR ---
PT RESTING IN BED WITH EYES OPEN. ALERT AND ORIENTED X 3. PT DENIES ACUTE PAIN OR DISCOMFORT. ASSISTED TO USE BEDPAN, PT HAD A LARGE SOFT BM. I STARTED TO GIVE BEDBATH. AFTER WASHING PTS BACK, HE STATED HE HAD A GOOD SHOWER YESTERDAY WITH OT, AND DIDNT NEED ONE TONIGHT. BARTON CATH PATENT AND DRAINING TO A GRAVITY BAG. PT REPOSITIONED FREQUENTLY PER HIS REQUEST. PT RESTING ON A 1ST STEP MATTRESS. SR'S ARE UP X 3 IN BED. CALL LIGHT AND BEDSIDE TABLE ARE WITHIN EASY REACH.
--- NOTE | 2018-11-07 23:01 | NUR ---
RESTING IN BED WITH NO DISTRESS NOTED. RESPIRATIONS UNLABORED. CALL LIGHT IN REACH.
--- NOTE | 2018-11-08 01:37 | NUR ---
RESTING QUIETLY IN BED WITH EYES CLOSED. NO ACUTE DISTRESS NOTED.
--- NOTE | 2018-11-08 04:50 | NUR ---
PT RESTING QUIETLY IN BED WITH EYES CLOSED. NO DISTRESS NOTED.
--- NOTE | 2018-11-08 11:05 | NUR ---
PATIENT AWAKE AND ALERT THIS MORNING. DENIES PAIN OR DISCOMFORT. ATE 50% OF BREAKFAST. CALLS OFTEN TO BE REPOSITIONED. WILL CONTINUE TO MONITOR. CALL LIGHT WITHIN REACH.
[2018-11-08 13:56] VITALS: BP 116/64
--- NOTE | 2018-11-08 16:19 | NUR ---
RESTING QUIETLY IN BED AT THIS TIME. FAMILY IN TO VISIT THIS AFTERNOON. CALL LIGHT WITHIN REACH. WILL CONTINUE TO MONITOR.
[2018-11-08 19:49] VITALS: BP 110/56
--- NOTE | 2018-11-08 20:00 | NUR ---
PT IS RESTING IN BED WITH EYES OPEN. ALERT AND ORIENTED X 3. DENIES ACUTE DISCOMFORT AT THIS TIME. ASSISTED TO USE BEDPAN WITH MAX ASSIST. MEDIUM SOFT BM NOTED. NO FURTHER NEEDS VOICED. BARTON CATH PATENT AND DRAINING TO A GRAVITY BAG. VSS. SR'S ARE UP X 3 IN BED. CALL LIGHT AND BEDSIDE TABLE ARE WITHIN EASY REACH.
--- NOTE | 2018-11-09 00:11 | NUR ---
RESTING IN BED WITH RESPIRATIONS UNLABORED. NO DISTRESS NOTED. CALL LIGHT IN REACH.
--- NOTE | 2018-11-09 05:00 | NUR ---
PT IS RESTING QUIETLY IN BED WITH EYES CLOSED. NO DISTRESS NOTED.
[2018-11-09 06:45] LABS: BASOPHILS 0.3 % (0-2); EOSINOPHILS 3.9 % (0-7); HEMATOCRIT 34.5 % (42.0-54.0); HEMOGLOBIN 11.5 g/dL (13.5-17.5); MCH 29.5 pg (26.0-34.0); MCHC 33.3 g/dL (31.0-37.0); MCV 88.5 fL (80.0-100.0); MONOCYTES 7.7 % (2-11); NEUTROPHILS 70.1 % (40-80); PLATELET COUNT 333 10x3/uL (130-400); RDW 13.6 % (11.5-14.5); WBC 9.2 10x3/uL (4.8-10.8)
[2018-11-09 07:00] LABS: CALC OSMOLALITY 280 mosm/kg (275-300); CALCIUM 8.7 mg/dL (8.5-10.1); CARBON DIOXIDE 28.6 mmol/L (21.0-32.0); CHLORIDE - SERUM 103 mmol/L (98-107); CREATININE - SERUM 0.9 mg/dL (0.6-1.3); GLUCOSE 99 mg/dL (74-106); SODIUM 141 mmol/L (136-145); UREA NITROGEN 13 mg/dL (7-18); eGFR NON AFRICAN AMERICAN 89 mL/min (90-120)
--- NOTE | 2018-11-09 07:29 | NUR ---
AWAKE AND ALERT THIS MORNING. NO COMPLAINTS AT THIS TIME. WOULD LIKE TO SEE IF HE COULD GET ANOTHER BED BECAUSE THE BED HE IS IN IS HARD TO TURN BECAUSE OF THE SIDE RAILS. WILL CONTINUE TO MONITOR. CALL LIGHT WITHIN REACH.
[2018-11-09 07:34] VITALS: BP 127/70
--- NOTE | 2018-11-09 14:46 | NUR ---
UP FOR THERAPY THIS AFTERNOON AND TOLERATED WELL. NO COMPLAINTS AT THIS TIME. WILL CONTINUE TO MONITOR. CALL LIGHT WITHIN REACH.
[2018-11-09 19:38] VITALS: BP 95/57
--- NOTE | 2018-11-09 21:54 | NUR ---
PATIENT RECEIVED SITTING UP IN BED WATCHING TV. PATIENT HAD NO C/O PAIN OR DISTRESS. PATIENT VITAL SIGNS & ASSESSMENT DONE. PATIENT BED LOW. ALARM ON. CALL LIGHT WITHIN REACH. WILL CONTINUE TO MONITOR.
--- NOTE | 2018-11-09 22:40 | NUR ---
PT WATCHING BALLGAME, WANTS TO WAIT UNTIL AFTER GAME FOR BATH,NO NEEDS NOTED, FLUIDS AND CALL LIGHT WITHIN REACH
--- NOTE | 2018-11-09 23:21 | NUR ---
BED BATH GIVEN.
--- NOTE | 2018-11-10 00:53 | NUR ---
PATIENT EYES CLOSED. RESPIRATIONS 18 & EVEN. BED LOW. ALARM ON. CALL LIGHT WITHIN REACH. WILL CONTINUE TO MONITOR.
--- NOTE | 2018-11-10 07:49 | NUR ---
RESTING WITH EYES CLOSED. RESP EVEN AND UNLABORED. NO DISTRESS NOTED.
[2018-11-10 08:00] VITALS: BP 110/58
--- NOTE | 2018-11-10 10:33 | NUR ---
REPOSITIONED UP IN BED. ON AIR MATTRESS. NO C/O PAIN.
--- NOTE | 2018-11-10 12:26 | NUR ---
DRESSING CHANGED TO NECK. OSCAR CDI WITH REDNESS AT INCISIN SITE. 1 SUTURE NOTED ON LEFT SIDE OF INCISION.
--- NOTE | 2018-11-10 13:55 | NUR ---
Nutrition Follow Up: Pt was in therapy at the time of RD visit. Interview deferred at this time. Diet: Regular PO Intake: 87% meal avg BM: 11/09/18 Labs reviewed Meds noted including Lasix Rec continue current diet. RD following.
--- NOTE | 2018-11-10 17:45 | NUR ---
EATING DINNER. REPOSITIONED UP IN BED. NO CHANGE IN ASSESSMENT. RESP EVEN AND UNLABORED.
[2018-11-10 20:00] VITALS: BP 119/60
--- NOTE | 2018-11-10 20:00 | NUR ---
PATIENT RECEIVED LAYING IN BED WATCHING TV. PATIENT ASSESSMENT & VITAL SIGNS DONE. PATIENT HAD NO C/O PAIN OR DISTRESS. BED LOW. CALL LIGHT WITHIN REACH. WILL CONTINUE TO MONITOR.
--- NOTE | 2018-11-11 02:08 | NUR ---
PATIENT EYES CLOSED. RESPIRATIONS 18 & EVEN. BARTON CATHETER PATENT WITH CLEAR YELLOW URINE. BED LOW. CALL LIGHT WITHIN REACH. WILL CONTINUE TO MONITOR.
--- NOTE | 2018-11-11 06:52 | NUR ---
PT ASLEEP FLUIDS AND CALL LIGHT WITHIN REACH
[2018-11-11 07:12] LABS: BASOPHILS 0.3 % (0-2); EOSINOPHILS 3.9 % (0-7); HEMATOCRIT 34.8 % (42.0-54.0); HEMOGLOBIN 11.6 g/dL (13.5-17.5); IMMATURE GRANULOCYTES 0.9 % (0-5); LYMPHOCYTES 15.7 % (15-50); MCH 29.3 pg (26.0-34.0); MCHC 33.3 g/dL (31.0-37.0); MCV 87.9 fL (80.0-100.0); MEAN PLATELET VOLUME 8.9 fL (7.4-10.4); MONOCYTES 8.6 % (2-11); NEUTROPHILS 70.6 % (40-80); PLATELET COUNT 332 10x3/uL (130-400); RBC 3.96 10x6/uL (4.20-6.10); RDW 13.1 % (11.5-14.5); WBC 9.2 10x3/uL (4.8-10.8)
--- NOTE | 2018-11-11 07:18 | NUR ---
RESTING WITH EYES CLOSED. NO DISTRESS NOTED. ON FIRST STEP AIR MATTRESS.
[2018-11-11 07:26] LABS: CALC OSMOLALITY 280 mosm/kg (275-300); CALCIUM 8.9 mg/dL (8.5-10.1); CARBON DIOXIDE 28.9 mmol/L (21.0-32.0); CHLORIDE - SERUM 103 mmol/L (98-107); CREATININE - SERUM 0.8 mg/dL (0.6-1.3); GLUCOSE 100 mg/dL (74-106); POTASSIUM - SERUM 3.9 mmol/L (3.5-5.1); SODIUM 141 mmol/L (136-145); UREA NITROGEN 12 mg/dL (7-18); eGFR NON AFRICAN AMERICAN > 90 mL/min (90-120)
[2018-11-11 08:00] VITALS: BP 134/76
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
--- NOTE | 2018-11-11 15:11 | NUR ---
REPOSITIONED UP IN BED FOR COMFORT.
--- NOTE | 2018-11-11 16:39 | NUR ---
REPOSITIONED UP IN BED.NO CHANGE IN ASSESSMENT.
[2018-11-11 19:30] VITALS: BP 113/56
--- NOTE | 2018-11-11 20:11 | NUR ---
GREETED PATIENT AND INTRODUCED MYSELF HIS NURSE FOR THE EVENING. PATIENT IS LAYING IN SUPINE POSITION WITH HOB AT 15 DEGREES. DENIES ANY FURTHER NEEDS. CALL LIGHT REACH.
--- NOTE | 2018-11-12 00:36 | NUR ---
PATIENT ASLEEP WITH EYES CLOSED LAYING ON RIGHT SIDE. HOB AT 10 DEGREES. RESPIRATIONS EVEN. NO SIGNS OF DISTRESS. CALL LIGHT IN REACH.
--- NOTE | 2018-11-12 02:53 | NUR ---
PATIENT LAYING IN BED WATCHING TV. RESPIRATIONS EVEN. NO SIGNS OF DISTRESS. DENIES ANY NEEDS AT THIS TIME. CALL LIGHT IN REACH.
--- NOTE | 2018-11-12 03:00 | NUR ---
PATIENT TURNED ONTO LEFT SIDE WITH PILLOW UNDER HIPS AND BUTTOCK FOR SUPPORT. CALL LIGHT IN REACH.
[2018-11-12 08:00] VITALS: BP 109/65
--- NOTE | 2018-11-12 15:49 | NUR ---
LAYING ON BACK IN BED. DOES NOT USE PILLOW UNDER HEAD. OSCAR TO BACK OF NECK OPEN TO AIR. HAS SMALL SUTURE TO LEFT SIDE OF NECK INCISION. SPOKE WITH DR OJEDA NURSE ([facility]) ABOUT WHEN TO DC NECK OSCAR AND DC SUTURE. [facility] WILL SPEAK TO DR OJEDA AND CALL REHAB BACK
--- NOTE | 2018-11-12 18:50 | NUR ---
GREETED PATIENT AND INTRODUCED MYSELF. ASSISTED PATIENT WITH REPOSITIONING IN BED. PATIENT DENIES ANY FURTHER NEEDS AT THIS TIME. CALL LIGHT IN REACH.
[2018-11-12 19:48] VITALS: BP 103/58
--- NOTE | 2018-11-12 21:50 | NUR ---
ASSISTED PATIENT ONTO LEFT SIDE. PILLOW BEHIND BACK AND BUTTOCKS FOR SUPPORT. CALL LIGHT IN REACH.
--- NOTE | 2018-11-13 00:52 | NUR ---
PATIENT ASLEEP WITH EYES CLOSED. HOB AT 10 DEGREES. RESPIRATIONS EVEN. NO SIGNS OF DISTRESS. CALL LIGHT IN REACH
--- NOTE | 2018-11-13 03:16 | NUR ---
PATIENT AWAKE AND LAYING ON LEFT SIDE. PILLOW UNDER BACK AND BUTTOCKS ON RIGHT SIDE. DENIES ANY NEEDS AT THIS TIME. CALL LIGHT IN REACH
[2018-11-13 05:44] LABS: BASOPHILS 0.3 % (0-2); EOSINOPHILS 5.8 % (0-7); HEMATOCRIT 34.4 % (42.0-54.0); HEMOGLOBIN 11.4 g/dL (13.5-17.5); IMMATURE GRANULOCYTES 0.9 % (0-5); LYMPHOCYTES 17.3 % (15-50); MCH 28.9 pg (26.0-34.0); MCHC 33.1 g/dL (31.0-37.0); MCV 87.1 fL (80.0-100.0); MEAN PLATELET VOLUME 9.1 fL (7.4-10.4); MONOCYTES 6.5 % (2-11); NEUTROPHILS 69.2 % (40-80); PLATELET COUNT 344 10x3/uL (130-400); RBC 3.95 10x6/uL (4.20-6.10); WBC 8.8 10x3/uL (4.8-10.8)
[2018-11-13 05:46] LABS: CALC OSMOLALITY 284 mosm/kg (275-300); CALCIUM 8.6 mg/dL (8.5-10.1); CHLORIDE - SERUM 102 mmol/L (98-107); CREATININE - SERUM 0.8 mg/dL (0.6-1.3); GLUCOSE 108 mg/dL (74-106); POTASSIUM - SERUM 3.4 mmol/L (3.5-5.1); SODIUM 142 mmol/L (136-145); UREA NITROGEN 14 mg/dL (7-18); eGFR NON AFRICAN AMERICAN > 90 mL/min (90-120)
[2018-11-13 08:04] VITALS: BP 115/55
--- NOTE | 2018-11-13 08:09 | NUR ---
LAYING IN BED WAITING ON BREAKFAST. DENIES INCREASED PAIN. STATES HIS NECK ON THE BACK ITCHES. CALL LIGHT IN REACH. ON AIR MATTRESS
--- NOTE | 2018-11-13 15:15 | NUR ---
SITTING UP IN WC IN ROOM.
--- NOTE | 2018-11-13 18:29 | NUR ---
LAYING QUIETLY IN BED. ATE SUPPER IN BED. DENIES NEEDS OR INCREASED ITCHING TO BACK OF NECK AT OSCAR/INCISION LINE.
--- NOTE | 2018-11-13 19:05 | NUR ---
PATIENT IS RESTING IN BED. DENIES ANY NEEDS. BED IS DOWN LOW WITH SIDE RAILS UP X2 AND CALL LIGHT IS IN REACH.
--- NOTE | 2018-11-13 20:00 | NUR ---
PT IS RESTING IN BED WITH EYES OPEN. ALERT AND ORIENTED X 3. DENIES ACUTE PAIN OR DISCOMFORT AT THIS TIME. PT REQUESTS TO BE TURNED AND REPOSITIONED PRN. OSCAR TO NECK INCISION ARE CDI. NO DRAINAGE NOTED. VSS. ABRTON CATH IS PATENT AND DRAINING TO A GRAVITY BAG. PT RESTING ON A 1ST STEP MATRESS. SR'S ARE UP X 3 IN BED. CALL LIGHT AND BEDSIDE TABLE ARE WITHIN EASY REACH.
[2018-11-13 21:06] VITALS: BP 118/59
--- NOTE | 2018-11-13 23:03 | NUR ---
PT IS RESTING QUIETLY IN BED WITH EYES CLOSED. RESPS ARE EVEN AND UNLABORED. NO ACUTE DISTRESS NOTED.
--- NOTE | 2018-11-14 03:10 | NUR ---
RESTING IN BED WITH EYES CLOSED.
--- NOTE | 2018-11-14 06:12 | NUR ---
PT RESTING IN BED WITH EYES OPEN. HE STATES HE GOT 4.5 HRS OF CONTINUOUS SLEEP TONIGHT, AND FEELS MUCH BETTER THIS AM. NO NEEDS VOICED.
--- NOTE | 2018-11-14 07:48 | NUR ---
RESTING WITH EYES CLOSED. RESP EVEN AND UNLABORED. NO DISTRESS NOTED.
[2018-11-14 08:00] VITALS: BP 115/65
--- NOTE | 2018-11-14 11:54 | NUR ---
RESTING WO DISTRESS. STATED HE " GOT A FULL NIGHTS SLEEP WO WAKING UP ALL THE TIME FOR A CHANGE".
--- NOTE | 2018-11-14 15:53 | NUR ---
DULCOLAX SUPPOSITORY GIVEN. NO CHANGE IN ASSESSMENT.
--- NOTE | 2018-11-14 19:51 | NUR ---
RECEIVED PT IN BED, DENIES NEEDS OR WANTS AT THIS TIME. CALL LIGHT AND FLUIDS WITHIN REACH.
--- NOTE | 2018-11-14 23:08 | NUR ---
HAIR SHAMPOOED AT THIS TIME PER PT REQUEST, DENIES FURTHER NEEDS OR WANTS. NO SIGNS OF PAIN OR DISTRESS NOTED. WILL CONTINUE TO MONITOR.
--- NOTE | 2018-11-15 02:12 | NUR ---
RESTING WITH EYES CLOSED, NO SIGNS OF PAIN OR DISTRESS NOTED. CALL LIGHT AND FLUIDS WITHIN REACH.
--- NOTE | 2018-11-15 05:39 | NUR ---
AWAKENS EASILY FOR AM MEDS, DENIES PAIN OR DISCOMFORT AT THIS TIME. CALL LIGHT AND FLUIDS WITHIN REACH.
--- NOTE | 2018-11-15 07:13 | NUR ---
RESTING WITH EYES CLOSED. RESP EVEN AND UNLABORED.
[2018-11-15 09:14] VITALS: BP 135/67
--- NOTE | 2018-11-15 12:36 | NUR ---
REPOSITIONED UP IN BED FOR LUNCH. NO C/O PAIN.
--- NOTE | 2018-11-15 15:58 | NUR ---
NO CHANGE IN ASSESSMENT. REPOSITIONED IN BED. SAT ON SIDE OF BED FOR A LITTLE WHILE.
[2018-11-15 17:57] VITALS: BP 136/64
--- NOTE | 2018-11-15 19:40 | NUR ---
THE PATIENT WAS LYING IN BED AND WATCHING TELEVISION WHEN STAFF ENTERED HIS ROOM. BED IN THE LOW POSITION WITH SIDERAILS X2 AND CALL LIGHT WITHIN REACH. THE PATIENT DEMONSTRATES USE OF A CALL LIGHT. THE PATIENT APPEARS COMFORTABLE WITH NO QUESTIONS OR CONCERNS AT THIS TIME.
--- NOTE | 2018-11-16 04:56 | NUR ---
THE PATIENT APPEARS TO BE SLEEPING COMFORTABLY. BED IS IN THE LOW PSOITITON WITH SIDERAILS X2 AND CALL LIGHT WITHIN REACH.
[2018-11-16 05:45] VITALS: BP 104/65
[2018-11-16 06:50] LABS: BASOPHILS 0.5 % (0-2); EOSINOPHILS 6.3 % (0-7); HEMATOCRIT 35.5 % (42.0-54.0); HEMOGLOBIN 11.9 g/dL (13.5-17.5); IMMATURE GRANULOCYTES 0.7 % (0-5); LYMPHOCYTES 20.8 % (15-50); MCH 29.5 pg (26.0-34.0); MCHC 33.5 g/dL (31.0-37.0); MCV 88.1 fL (80.0-100.0); MEAN PLATELET VOLUME 8.9 fL (7.4-10.4); MONOCYTES 6.9 % (2-11); NEUTROPHILS 64.8 % (40-80); PLATELET COUNT 308 10x3/uL (130-400); RBC 4.03 10x6/uL (4.20-6.10); RDW 13.1 % (11.5-14.5); WBC 8.1 10x3/uL (4.8-10.8)
[2018-11-16 06:52] LABS: CALC OSMOLALITY 282 mosm/kg (275-300); CALCIUM 8.6 mg/dL (8.5-10.1); CARBON DIOXIDE 28.6 mmol/L (21.0-32.0); CHLORIDE - SERUM 103 mmol/L (98-107); CREATININE - SERUM 0.8 mg/dL (0.6-1.3); GLUCOSE 108 mg/dL (74-106); POTASSIUM - SERUM 3.6 mmol/L (3.5-5.1); SODIUM 142 mmol/L (136-145); UREA NITROGEN 11 mg/dL (7-18); eGFR NON AFRICAN AMERICAN > 90 mL/min (90-120)
--- NOTE | 2018-11-16 07:25 | NUR ---
PT LYING IN BED. CALL LIGHT IN REACH.NO SIGN OF DISTRESS OR PAIN. WCTM BED IN LOW POSITION. SIDE RAILS X2.
[2018-11-16 08:00] VITALS: BP 141/66
--- NOTE | 2018-11-16 12:00 | NUR ---
PT SITTING UP IN WHEELCHAIR. CALL LIGHT IN REACH. PT DENIES NEEDS OR PAIN. WCTM
--- NOTE | 2018-11-16 15:14 | NUR ---
PATIENT ADMITTED TO REHAB FROM ACUTE FLOOR. DME IS A WHEELCHAIR. PATIENT WILL NEED A FOLLOW UP APPOINTMENT WITH DR. OJEDA AT DISCHARGE. WILL CONTINUE TO FOLLOW WITH PATIENT.
--- NOTE | 2018-11-16 15:34 | NUR ---
PT LYING IN BED. CALL LIGHT IN REACH. PT DENIES NEEDS OR PAIN. BED IN LOW POSITION. SIDE RAILS X2. TM
--- NOTE | 2018-11-16 18:36 | NUR ---
PT SITTING UP IN BED. CALL LIGHT IN REACH. PT DENIES NEEDS OR PAIN. WCTM
--- NOTE | 2018-11-16 19:03 | NUR ---
GREETED PATIENT AND INTRODUCED MYSELF HIS NURSE FOR THE EVENING. PATIENT IS LAYING IN BED WATCHING TV. DENIES ANY FURTHER NEEDS AT THIS TIME. CALL LIGHT IN REACH
[2018-11-16 19:45] VITALS: BP 129/66
--- NOTE | 2018-11-16 22:40 | NUR ---
REPOSITIONED PATIENT ON RIGHT SIDE. PILLOW BEHIND BACK AND BUTTOCKS FOR SUPPORT. CALL LIGHT IN REACH.
--- NOTE | 2018-11-17 01:48 | NUR ---
PATIENT ASLEEP LAYING IN SUPINE POSITION. HOB AT 10 DEGREES. RESPIRATIONS EVEN. NO SIGNS OF DISTRESS. CALL LIGHT IN REACH.
--- NOTE | 2018-11-17 03:50 | NUR ---
PATIENT AWAKE AND ASKING TO BE REPOSITIONED ON LEFT SIDE WITH PILLOW BEDHIND BUTTOCK AND BACK. CALL LIGHT IN REACH.
--- NOTE | 2018-11-17 08:16 | NUR ---
ALERT AND ORIENTED. NO C/O PAIN. RESP EVEN AND UNLABORED.
[2018-11-17 08:28] VITALS: BP 110/54
--- NOTE | 2018-11-17 11:41 | NUR ---
REPOSITIONED UP IN BED. NO C/O PAIN. RESP EVEN AND UNLABORED.
--- NOTE | 2018-11-17 12:59 | NUR ---
Nutrition Follow Up: Pt stated that his appetite is good. Diet: Regular PO Intake: 91% meal avg BM: 11/15/18 Labs reviewed Meds noted including Lasix Rec continue current diet. RD following.
--- NOTE | 2018-11-17 16:36 | NUR ---
RESTING WITH EYES CLOSED. RESP EVEN AND UNLABORED. NO CHANGE IN ASSESSMENT.
--- NOTE | 2018-11-17 19:05 | NUR ---
GREETED PATIENT AND INTRODUCED MYSELF HER NURSE. PATIENT DENIES ANY NEEDS AT THIS TIME. CALL LIGHT IN REACH.
[2018-11-17 19:58] VITALS: BP 121/60
--- NOTE | 2018-11-18 01:28 | NUR ---
PATIENT ASLEEP WITH EYES CLOSED. RESPIRATIONS EVEN. NO SIGNS OF DISTRESS. CALL LIGHT IN REACH.
--- NOTE | 2018-11-18 07:21 | NUR ---
RESTING WITH EYES CLOSED. RESP EVEN AND UNLABORED. NO DISTRESS NOTED.
[2018-11-18 08:27] VITALS: BP 113/58
--- NOTE | 2018-11-18 10:23 | NUR ---
OSCAR DC'D PER ORDER WO DIFFICULTY.
--- NOTE | 2018-11-18 10:27 | NUR ---
BOWELL SCORE 5-USES BED WILSON-STAFF EMPTIES.
--- NOTE | 2018-11-18 11:44 | NUR ---
PARTICIPATING IN THERAPY AT THIS TIME. NO C/O PAIN.
--- NOTE | 2018-11-18 13:21 | NUR ---
SHOWER GIVEN PER OT.
--- NOTE | 2018-11-18 16:36 | NUR ---
CARE TEAM MEETING: PATIENT PROGRESSING IN THEARPY. TENATIVE DISCHARGE DATE IS 11/25/18. WILL CONTINUE TO FOLLOW WITH PATIENT.
--- NOTE | 2018-11-18 18:19 | NUR ---
NO CHANGE IN ASSESSMENT. NO C/O PAIN.
--- NOTE | 2018-11-18 20:31 | NUR ---
PT AWAKE REPOSITIONED PILLOW UNDER RIGHT SIDE FLUIDS AND CALL LIGHT WITHIN REACH
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
[2018-11-19 00:55] VITALS: BP 116/64
--- NOTE | 2018-11-19 07:35 | NUR ---
PT LYING IN BED CALL LIGHT IN REACH. BED IN LOW POSITION. SIDE RAILS X2. PT DENIES NEEDS OR PAIN. WILL CONTINUE TO MONITOR.
[2018-11-19 08:56] VITALS: BP 128/68
--- NOTE | 2018-11-19 10:30 | NUR ---
PT IN THERAPY. DENIES NEEDS
--- NOTE | 2018-11-19 15:51 | NUR ---
PT LYING IN BED. CALL LIGHT IN REACH. PT DENIES NEEDS OR PAIN. BED IN LOW SIDE RAILS X2. WILL CONTINUE TO MONITOR.
--- NOTE | 2018-11-19 18:08 | NUR ---
PT SITTING UP IN BED EATING DINNER. CALL LIGHT IN REACH. PT DENIES NEEDS OR PAIN. WCTM
--- NOTE | 2018-11-19 19:46 | NUR ---
PATIENT RECEIVED LAYING IN BED. CALL LIGHT IN HIS HAND. TV ON. BARTON CATHETER PATENT WITH CONCENTRATED YELLOW URINE. PATIENT ASSESSMENT & VITAL SIGNS DONE. PATIENT BED LOW. WILL CONTINUE TO MONITOR.
--- NOTE | 2018-11-19 19:57 | NUR ---
PT WATCHING BASKETBALL IN BED, PLEASANT, ALWAYS HAPPY TO SEE ME, SMILING JOKING, FLUIDS AND CALL LIGHT WITHIN REACH
[2018-11-19 20:45] VITALS: BP 119/54
--- NOTE | 2018-11-19 22:10 | NUR ---
PATIENT EYES CLOSED. RESPIRATIONS 18 & EVEN. PATIENT BED LOW. CALL LIGHT WITHIN REACH. WILL CONTINUE TO MONITOR.
--- NOTE | 2018-11-20 02:14 | NUR ---
PATIENT EYES CLOSED. RESPIRATIONS 18 & EVEN. BED LOW. CALL LIGHT WITHIN REACH. WILL CONTINUE TO MONITOR.
[2018-11-20 06:47] LABS: CALC OSMOLALITY 285 mosm/kg (275-300); CALCIUM 8.8 mg/dL (8.5-10.1); CARBON DIOXIDE 29.1 mmol/L (21.0-32.0); CHLORIDE - SERUM 105 mmol/L (98-107); CREATININE - SERUM 0.8 mg/dL (0.6-1.3); GLUCOSE 108 mg/dL (74-106); POTASSIUM - SERUM 3.3 mmol/L (3.5-5.1); SODIUM 143 mmol/L (136-145); UREA NITROGEN 13 mg/dL (7-18); eGFR NON AFRICAN AMERICAN > 90 mL/min (90-120)
[2018-11-20 06:59] LABS: BASOPHILS 0.5 % (0-2); HEMATOCRIT 34.7 % (42.0-54.0); HEMOGLOBIN 11.7 g/dL (13.5-17.5); IMMATURE GRANULOCYTES 0.9 % (0-5); LYMPHOCYTES 21.3 % (15-50); MCH 29.3 pg (26.0-34.0); MCHC 33.7 g/dL (31.0-37.0); MEAN PLATELET VOLUME 9.1 fL (7.4-10.4); MONOCYTES 6.6 % (2-11); NEUTROPHILS 63.7 % (40-80); PLATELET COUNT 311 10x3/uL (130-400); RBC 3.99 10x6/uL (4.20-6.10); WBC 7.7 10x3/uL (4.8-10.8)
--- NOTE | 2018-11-20 07:25 | NUR ---
PT LYING IN BED. CALL LIGHT IN REACH. PT DENIES NEEDS OR PAIN. BED IN LOW SIDE RAILS X2. WILL CONTINUE TO MONITOR. RESP EVEN AND UNLABORED.
--- NOTE | 2018-11-20 10:59 | NUR ---
PT IN THERAPY. DENIES NEEDS
[2018-11-20 11:00] VITALS: BP 113/57
--- NOTE | 2018-11-20 14:35 | NUR ---
PT SITTING UP IN WHEELCHAIR. CALL LIGHT IN REACH. PT DENIES NEEDS AT THIS TIME. WILL CONTINUE TO MONITOR.
--- NOTE | 2018-11-20 16:11 | NUR ---
SPOKE WITH PATIENT AND HIS SISTER ABOUT DISCHARGE PLANS. I CALLED [facility] AND DUE TO HIS INSURANCE HE CANNOT ADMIT THERE. [facility] [place] AND THE REHAB SCREENER IS TO CALL ME FOR RECORDS. I SPOKE WITH PATIENT AND HE IS WILLING TO GO TO [facility] [place] [facility] ACCEPT. WILL CONTINUE TO FOLLOW WITH PATIENT.
--- NOTE | 2018-11-20 17:03 | NUR ---
PT RESTING QUIETLY CALL LIGHT IN REACH. NO SIGNS OF DISTRESS OR PAIN. WCTM
--- NOTE | 2018-11-20 20:00 | NUR ---
PATIENT RECEIVED LAYING ON BACK WATCHING TV. PATIENT TURNED ON LEFT SIDE. BUTTOCKS RED, CALMOSEPTINE APPLIED. PATIENT VITAL SIGNS & ASSESSMENT DONE. PATIENT HAD NO C/O PAIN OR DISTRESS. BED LOW. CALL LIGHT WITHIN REACH. WILL CONTINUE TO MONITOR.
[2018-11-20 21:00] VITALS: BP 127/66
--- NOTE | 2018-11-21 00:41 | NUR ---
PATIENT AWAKE WATCHING TV. PATIENT BEDSIDE TABLE & CALL LIGHT WITHIN REACH. BED LOW. BARTON CATHETER PATENT WITH CLEAR YELLOW URINE. WILL CONTINUE TO MONITOR.
[2018-11-21 07:00] VITALS: BP 124/65
--- NOTE | 2018-11-21 07:15 | NUR ---
MORNING ASSESSMENT COMPLETE. SEE ASSESSMENT FLOWSHEET FOR FURTHER DETAILS. PT LYING IN BED AAO X4 TO PERSON, PLACE, TIME, AND SITUATION. DENIES NEEDS AT THSI TIME. CL IN REACH. SIDE RAILS UP X3 FOR PATIENT PARRISH
--- NOTE | 2018-11-21 20:00 | NUR ---
PATIENT RECEIVED LAYING IN BED. PATIENT VITAL SIGNS & ASSESSMENT DONE. PATIENT HAD NO C/O PAIN OR DISTRESS. PATIENT USING BED WILSON. NO BM. PATIENT SUPPOSITORY GIVEN RECTALLY. BED LOW. BEDSIDE TABLE & CALL LIGHT WITHIN REACH. WILL CONTINUE TO MONITOR.
[2018-11-21 20:44] VITALS: BP 117/70
--- NOTE | 2018-11-21 22:25 | NUR ---
DULCOLAX SUPPOSITORY NOT EFFECTIVE. PATIENT GIVEN MIRALAX.
--- NOTE | 2018-11-22 00:06 | NUR ---
RESTING IN BED WITH RESPIRATIONS UNLABORED. HAS HAD SOME GI DISCOMFORT THIS SHIFT DUE TO BEING TREATED FOR CONSTIPATION. WILL CONTINUE TO MONITOR. CALL [employer] CALL LIGHT IN REACH.
--- NOTE | 2018-11-22 00:15 | NUR ---
PATIENT HAD LARGE LOOSE & SOFT BM. PATIENT CLEANED, NEW BLUE PADS UNDER PATIENT. PATIENT CALL LIGHT WITHIN REACH. BED LOW. WILL CONTINUE TO MONITOR.
[2018-11-22 09:03] VITALS: BP 108/63
--- NOTE | 2018-11-22 12:13 | NUR ---
PATIENT SLEEPY THIS MORNING. STATES HE WAS UP MOST OF THE NIGHT TRYING TO HAVE A BM. HAD SOME LIQUID STOOL THIS MORNING. DID NOT WANT TO EAT BREAKFAST SO BREAKFAST WAS HELD WHILE HE NAPPED. ATE ABOUT 10% OF BREAKFAST AROUND 10:45. NO OTHER COMPLAINTS AT THIS ITME. HAD A MED SOFT BM. CALL LIGHT WITH-IN REACH. WILL CONTINUE TO MONITOR.
--- NOTE | 2018-11-22 19:35 | NUR ---
REPOSITION PT, CALL LIGHT IN REACH.
[2018-11-22 21:01] VITALS: BP 112/61
--- NOTE | 2018-11-22 21:48 | NUR ---
ASSISTED PT WITH BEDPAN, PT HAS BIG AMOUNT OF BROWN BM. CALL LIGHT IN REACH.
--- NOTE | 2018-11-23 00:14 | NUR ---
REST QUIELTY IN BED, CALL LIGHT IN REACH.
--- NOTE | 2018-11-23 03:59 | NUR ---
REST QUIELTY IN BED, CALL LIGHT IN REACH.
[2018-11-23 07:01] LABS: BASOPHILS 0.4 % (0-2); EOSINOPHILS 5.1 % (0-7); HEMATOCRIT 35.8 % (42.0-54.0); HEMOGLOBIN 12.3 g/dL (13.5-17.5); IMMATURE GRANULOCYTES 0.9 % (0-5); MCH 30.1 pg (26.0-34.0); MCHC 34.4 g/dL (31.0-37.0); MCV 87.7 fL (80.0-100.0); MEAN PLATELET VOLUME 9.1 fL (7.4-10.4); MONOCYTES 6.8 % (2-11); NEUTROPHILS 67.8 % (40-80); PLATELET COUNT 306 10x3/uL (130-400); RBC 4.08 10x6/uL (4.20-6.10)
[2018-11-23 07:12] LABS: CALC OSMOLALITY 281 mosm/kg (275-300); CALCIUM 8.9 mg/dL (8.5-10.1); CARBON DIOXIDE 30.6 mmol/L (21.0-32.0); CHLORIDE - SERUM 104 mmol/L (98-107); CREATININE - SERUM 0.8 mg/dL (0.6-1.3); GLUCOSE 106 mg/dL (74-106); POTASSIUM - SERUM 3.6 mmol/L (3.5-5.1); SODIUM 142 mmol/L (136-145); UREA NITROGEN 11 mg/dL (7-18); eGFR NON AFRICAN AMERICAN > 90 mL/min (90-120)
--- NOTE | 2018-11-23 08:00 | NUR ---
LAYING DOWN IN BED WATCHING TV AND WAITING ON BREAKFAST. DENIES INCREASED PAIN OR WORSE MUSCLE SPASMS. F/C PATENT WITH CLOUDY YELLOW URINE. AIR MATTRESS ON BED. CALL LIGHT IN REACH
[2018-11-23 08:55] VITALS: BP 123/68
--- NOTE | 2018-11-23 12:19 | NUR ---
SPOKE WITH DR ARELLANO ON PHONE. HE GAVE OK TO CHANGE OUT F/C SINCE IT HAS BEEN IN 35 DAYS. HE WILL SEE HIM AN OUT PATIENT. PER DR ARELLANO.
--- NOTE | 2018-11-23 13:17 | NUR ---
SITTING UP IN WC IN ROOM FINISHING LUNCH. HAS BEEN UP WITH P.T. WAS ABLE TO STAND AND TRANSFER WITH MAX ASST.
--- NOTE | 2018-11-23 13:37 | NUR ---
spoke with patient sister Jade and to Juany at [facility]. records have been faxed to [facility] and to [facility] for possible admission. will continue to follow with patient.
--- NOTE | 2018-11-23 19:25 | NUR ---
PT IS RESTING IN BED WITH EYES OPEN. ALERT AND ORIENTED X 3. DENIES ACUTE PAIN OR DISCOMFORT AT THIS TIME. NO NEEDS VOICED. PT RESTING ON A FIRTS STEP MATTRESS. HE REQUESTS TO BE TURNED AND REPOSITIONED PRN. BARTON CATH PATENT AND DRAINING TO A GRAVITY BAG. REPORTED TO NEED TO BE CHANGED TONIGHT. SR'S ARE UP X 3 IN BED. CALL LIGHT AND BEDSIDE TABLE ARE WITHIN EASY REACH.
[2018-11-23 20:04] VITALS: BP 116/55
--- NOTE | 2018-11-23 20:45 | NUR ---
I ATTEMPTED TO CHANGE PTS BARTON CATH. AFTER 15 MINS OF ATTEMPTING TO INSERT CATH WITHOUT SUCCESS, I REQUESTED RODY RN TO TRY. HE WAS UNABLE TO INSERT CATH. 16FR COUDE CATH THEN INSERTED WITHOUT DIFFICULTY. URINE DRAINING TO A GRAVITY BAG.
--- NOTE | 2018-11-23 22:52 | NUR ---
PT RESTING IN BED WITH EYES OPEN. REQUESTING FREQUENT POSITION CHANGES. PT REQUESTING TO SEE THE CHAPLAIN FRANK BEFORE HE DC'S TO ANOTHER FACILITY.
--- NOTE | 2018-11-24 02:18 | NUR ---
RESTING IN BED WITH EYES CLOSED.
--- NOTE | 2018-11-24 02:44 | NUR ---
PATIENT APPEARS TO BE SLEEPING COMFORTABLY. BARTON CATHETER PRODUCING CLEAR YELLO WURINE.
--- NOTE | 2018-11-24 07:31 | NUR ---
RESTING WITH EYES CLSOED. NO DISTRESS NOTED. RESP EVEN AND UNLABORED.
[2018-11-24 08:15] VITALS: BP 116/66
--- NOTE | 2018-11-24 12:19 | NUR ---
PARTICIPATED IN THERAPY. BACK IN ROOM SITTING IN FOR LUNCH.
--- NOTE | 2018-11-24 12:52 | NUR ---
Nutrition Follow Up: Pt stated that his appetite is good but he was upset about his breakfast this morning. He said that the meat was chopped and he did not get what he ordered. RD apologized and encouraged pt to make staff aware if this happens again. Diet: Regular PO Intake: 83% meal avg BM: 11/22/18 Labs reviewed Meds noted including Lasix Rec continue current diet. RD following.
--- NOTE | 2018-11-24 14:47 | NUR ---
RECIEVED CALL FROM ANA AT [facility] AND PATIENT HAS BEEN ACCEPTED THERE AND WILL DISCHARGE IN THE AM. PATIENT HAS BEEN NOTIFIED AND LEFT VICE MESSAGE FOR ALANNA HIS SISTER TO CALL.
--- NOTE | 2018-11-24 19:15 | NUR ---
PT WATCHING BALL GAME, SMILING, HAPPY, GOING TO [facility] TOMORROW 11/25/18, NO NEEDS NOTED, FLUIDS AND CALL LIGHT WITHIN REACH
[2018-11-24 20:00] VITALS: BP 111/63
--- NOTE | 2018-11-24 23:23 | NUR ---
PATIENT AWAKE WATCHING TV. PATIENT BED LOW. BEDSIDE TABLE & CALL LIGHT WITHIN REACH. WILL CONTINUE TO MONITOR.
--- NOTE | 2018-11-25 07:50 | NUR ---
RESP EVEN AND UNLABORED. NO DISTRESS NOTED. CL IN REACH.
--- NOTE | 2018-11-25 08:30 | NUR ---
REPORT CALLED TO [facility]. SPOKE TO WESTON MASTERSON. PATIENT WILL GO TO ROOM 36. REPORT GIVEN. CALLED [facility] AND INFORMATION GIVEN-WILL BE PICKED UP BY Balakam AT 10:30. DISC FOR XRAY WILL BE SENT WITH PATIENT DC PAPERS.
--- NOTE | 2018-11-25 10:55 | NUR ---
LEFT WITH [facility] FOR [facility].
--- NOTE | 2018-11-25 11:45 | NUR ---
PATIENT HAS BEEN ACCEPTED TO [facility] AND HAS TRANSFERED THERE VIA AMBULANCE . FAMILY HAS BEEN NOTIFIED. PATIENT WILL FOLLOW UP WITH THE [facility].
== END 2018-11-25 10:57 | disposition short-term general hospital (02) | DRG 551 ==
LOC: D.REHAB 18:01
PROVIDERS: ADMIT Emergency Medicine
DX: M48.02 Spinal stenosis, cervical region (principal); S14.101A Unspecified injury at C1 level of cervical spinal cord, initial encounter; N39.0 Urinary tract infection, site not specified; G95.9 Disease of spinal cord, unspecified; B95.2 Enterococcus as the cause of diseases classified elsewhere; R53.1 Weakness; R53.81 Other malaise; D64.9 Anemia, unspecified; R31.9 Hematuria, unspecified; R29.90 Unspecified symptoms and signs involving the nervous system